=== PATIENT | female | born 1975 | race Caucasian/White ===

== ENCOUNTER 2016-08-01 16:32 | Inpatient (IN) | payer OTHER, SELFPAY ==
[~2016-08-01] VITALS: Ht 152.4 cm; Wt 53.1 kg
[~2016-08-01 16:32] MED LIST: /CIPR75TA OR; /METO5TA PO; ACET65TA OR; AUGM875T27 PO; FLAG500T PO; IBUP600T OR; NO MEDS AT HOME; OMEP40CA2 PO; TAKES NO MEDS; VALI5TAB OR; VENTAER IN; ZANT150T OR
[2016-08-01] MEDS ORDERED: NALOXONE INJ 2 MG/2 ML SYRINGE (J2310) As Ordered ONE (16:39)
[2016-08-01 16:48] LABS: ABG DEVICE NASAL CANN; ABG PARTIAL PRESSURE CO2 13.9 mmHg (35.0-45.0); ABG PARTIAL PRESSURE O2 113.4 mmHg (75.0-100.0); ABG STANDARD HCO3 22.8 MEQ/L (22.0-26.0); ABG TOTAL CO2 17.5 MEQ/L (22.0-29.0); ABG pH (ARTERIAL) 7.706 UNITS (7.350-7.450)
[2016-08-01 17:08] LABS: AMPHETAMINES LEVEL URINE NEGATIVE (NEGATIVE); BENZODIAZEPINES URINE NEGATIVE (NEGATIVE); COCAINE METABOLITE URINE NEGATIVE (NEGATIVE); CONTROL LINE INT CTR LINE PRESENT; METHADONE URINE NEGATIVE (NEGATIVE); OPIATES URINE NEGATIVE (NEGATIVE); TRICYCLIC ANTIDEPRESS URINE NEGATIVE (NEGATIVE)
[2016-08-01] MEDS ORDERED: ACETAMINOPHEN TAB 650MG DOSE (2X325MG) As Ordered ONE ×2 (17:08→21:46)
[2016-08-01 17:11] LABS: ALBUMIN 3.9 GM/DL (3.2-5.2); ALBUMIN/GLOBULIN RATIO 1.05 (1.00-1.93); ALKALINE PHOSPHATASE 63 U/L (45-117); ALT/SGPT 17 U/L (12-78); ANION GAP 11 MEQ/L (8-16); AST/SGOT 19 U/L (15-37); BILIRUBIN,DIRECT 0.1 MG/DL (0.0-0.2); BILIRUBIN,TOTAL 0.5 MG/DL (0.2-1.0); BLOOD UREA NITROGEN 10 MG/DL (7-18); CALCIUM LEVEL 8.4 MG/DL (8.5-10.1); CARBON DIOXIDE LEVEL 22 MEQ/L (21-32); CHLORIDE LEVEL 108 MEQ/L (98-107); CREATININE FOR GFR 0.99 MG/DL (0.55-1.02); GLOMERULAR FILTRATION RATE > 60.0 (>58); GLUCOSE, FASTING 98 MG/DL (70-105); POTASSIUM SERUM 3.3 MEQ/L (3.5-5.1); SODIUM LEVEL 141 MEQ/L (136-145); TOTAL PROTEIN 7.6 GM/DL (6.4-8.2)
[2016-08-01 17:12] LABS: INR 0.87
--- NOTE | 2016-08-01 17:18 | REP ---
Clinical: Chest pain . Comparison: 04/29/2012 . Findings: The mediastinum and cardiac silhouette are stable and within normal limits for portable technique. The lung singh are clear without acute consolidation, effusion, or pneumothorax. Skeletal structures are intact. Impression: Normal portable chest x-ray Signed by Joe Jacome MD 08/01/2016 05:10 P
[2016-08-01 17:21] LABS: BASO % 1.5 % (0.0-1.0); EOS # 0.1 K/mm3 (0.0-0.50); EOS % 2.8 % (0.0-3.0); LARGE UNSTAINED CELL % 1.2 % (0.0-4.0); LYMPH # 0.5 K/mm3 (1.5-4.5); LYMPH % 13.4 % (24.0-44.0); MEAN CORPUSCULAR HEMOGLOBIN 18.4 pg (27.0-33.0); MEAN CORPUSCULAR HGB CONC 27.4 g/dl (32.0-36.5); MEAN CORPUSCULAR VOLUME 67.1 fl (80.0-96.0); MONO # 0.3 K/mm3 (0.0-0.8); MONO % 9.1 % (0.0-5.0); NEUTROPHILS # 2.3 K/mm3 (1.8-7.7); NEUTROPHILS % 72.1 % (36.0-66.0); PLATELET COUNT, AUTOMATED 280 k/mm3 (150-450); RED CELL DISTRIBUTION WIDTH 16.8 % (11.5-14.5); WHITE BLOOD COUNT 3.1 K/mm3 (4.0-10.0)
[2016-08-01 17:23] LABS: ADD MORPHOLOGY? YES; ANISOCYTOSIS 1+; HYPOCHROMASIA 2+
[2016-08-01 17:24] LABS: MICROCYTOSIS 2+
--- NOTE | 2016-08-01 17:46 | REP ---
Clinical: Acute headache . Comparison: 10/24/2006 . Findings: The ventricles, sulci, and cisterns are normal in position and appearance. Horton-white differentiation is maintained. No acute intracranial hemorrhage, mass/mass effect, pathology or trauma/injury. No evidence for acute infarction. No extra-axial fluid collection. Calvarium is intact. Paranasal sinuses and mastoid air cells are clear. Impression: Normal noncontrast head CT. No evidence for acute intracranial pathology or trauma/injury. Signed by Joe Jacome MD 08/01/2016 05:37 P
[2016-08-01] MEDS ORDERED: BICILLIN-CR 1,200,000 UNITS/2ML SYRINGE (J0558-12) As Ordered ONE (18:32)
[2016-08-01] MEDS ORDERED: ISOVUE-370 76% 100ML VIAL (Q9967) As Ordered ONE (18:34)
--- NOTE | 2016-08-01 19:05 | REP ---
Clinical: Acute chest pain. Technique: Axial contrast enhanced images from the thoracic inlet to the upper abdomen using 100 ml Isovue 370 intravenous contrast material with coronal and sagittal re-formations. Findings: Satisfactory enhancement of the pulmonary vasculature is achieved and no filling defects are identified to suggest pulmonary embolus. Thoracic aorta is normal caliber without aneurysm or dissection. Heart and pericardium are normal. Lung singh demonstrate minimal right basilar atelectasis. Small partially calcified subpleural nodule in the apex of the left lower lobe (image 28) and in the periphery of the left lower lobe (image 46 - 47) are chronic and faintly visible on chest CT dated 2011. No acute pulmonary parenchymal consolidation, significant nodule or mass lesion appreciated. No pleural effusion/reaction. No pneumothorax. No adenopathy. Impression: 1. No evidence for pulmonary embolus. 2. Minimal right basilar atelectasis. 3. Two small partially calcified nodules in the left lower lobe are faintly visible on chest CT dated 2011 and represent chronic change. Signed by Joe Jacome MD 08/01/2016 06:57 P
[2016-08-01] MEDS ORDERED: GI COCKTAIL 50ML BTL(HYOSCYAMINE/MAALOX/LIDOCAINE VISCOUS)(1:3:1) As Ordered ONE (19:17)
[2016-08-01] MEDS ORDERED: KETOROLAC 30 MG/ML VIAL (J1885) As Ordered ONE (19:17)
[2016-08-01 19:26] LABS: ABG DEVICE NASAL CANN; ABG HCO3 17.2 MEQ/L (22.0-26.0); ABG PARTIAL PRESSURE CO2 18.7 mmHg (35.0-45.0); ABG PARTIAL PRESSURE O2 137.4 mmHg (75.0-100.0); ABG STANDARD HCO3 21.1 MEQ/L (22.0-26.0); ABG TOTAL CO2 17.8 MEQ/L (22.0-29.0); ABG pH (ARTERIAL) 7.582 UNITS (7.350-7.450)
[2016-08-01] MEDS ORDERED: IPRATROPIUM 0.5MG/ALBUTEROL 2.5MG INH SOL UD 3ML (DUONEB)(J7620) NEB PRN (19:45)
[2016-08-01] MEDS ORDERED: ACETAMINOPHEN TAB 650MG DOSE (2X325MG) PO PRN (19:45)
[2016-08-01] MEDS ORDERED: MAGIC MOUTHWASH SUSPENSION BTL SSP PRN (19:45)
--- NOTE | 2016-08-01 23:06 | EDDOCDS ---
Nurse's Notes [facility] Name: Vicky Gonzalez Age: 41 yrs Sex: Female : 1975 Arrival Date: 08/01/2016 Time: 16:32 Bed Admit Hold Private MD: NO PRIMARY PHYSICIAN, . Diagnosis: Acute respiratory failure with hypoxia;Streptococcal pharyngitis Presentation: 08/01 17:00 Presenting complaint: EMS states: Patient was found down at home with a respiratory ja5 rate of 8bpm, spo2 low 90s and was placed on a non-rebreather mask 15L O2, lung sounds were clear. Blood sugar 97, BP 93/67 in field. Patient was placed on stretcher and she became unresponsive and stopped breathing. EMS used BVM on patient and O2 sats dropped to 70% so they attempted to place an OPA, gag reflex present, etomodate was found to have infiltrated in LAC that was started. O2 sat increased to 90% prior to arrival to hospital. Method of arrival: Ambulance: direct to room. Care prior to arrival: assisted ventilation, Saline lock initiated. Glucose check. 97 Oxygen administered by EMS. Compressions began :NA: no chest compressions. 17:00 Acuity: SHIRA Level 1 ja5 20:09 Acuity: SHIRA Level 3 ko2 20:09 Adult Sepsis Screening: The patient does not have new or worsening altered mentation. ko2 Patient's respiratory rate is less than 22. Systolic blood pressure is greater than 100. Patient has a qSOFA score of 0- Negative Sepsis Screen. Suicide/Homicide risk assessment- the patient denies having any suicidal and/or homicidal ideations and does not present with any other emotional, behavioral or mental health complaints. Status: Patient is not a medical services assistant or dependent. Transition of care: patient was not received from another setting of care. Triage Assessment: 17:38 Pain: Location: head and chest Pain currently is 10 out of 10 on a pain scale. HIV ja5 screening NA for this visit Offered previously. Neurological: Level of Consciousness is awake, alert, Oriented to person, place, time. Cardiovascular: Capillary refill < 3 seconds Heart tones S1 S2 present. Respiratory: Airway is patent Respiratory effort is even, gasping, shallow, Breath sounds are clear bilaterally. Derm: Skin is pink, warm & dry. Musculoskeletal: Circulation, motion, and sensation intact. BAG ADJUSTER: 16:40 LMP 07/18/2016 ja5 Historical: - Allergies: SULFA (SULFONAMIDES); - Home Meds: 1. none - PMHx: none; - PSHx: Tubal ligation; ; - Social history: Smoking status: Patient states was never smoker of tobacco. No barriers to communication noted, The patient speaks fluent Kuwaiti. - Family history: Not pertinent. - : The pt / caregiver states he / she is not on anticoagulants. Home medication list is obtained from the patient. - Exposure Risk Screening:: None identified. Screenin:00 Abuse/DV Screen: Unable to Assess. Nutritional screening: Unable to Assess. ja5 17:44 Screening information is obtained from the patient. Fall risk: No risks identified. ja5 Assistance ADL's: requires no assistance with activities of daily living. Abuse/DV Screen: The patient / caregiver reports he/she is: not in a situation that causes fear, pain or injury. Advance Directives: Currently, there is a health care proxy, Zo Parks, mother. There is no active DNR order. There is no living will. There is no Power of [employer]. home support is adequate. Assessment: 17:00 CPR assessment: no CPR was needed. Cardiac rhythm is Sinus Rhythm. ja5 17:17 General: Appears distressed, Patient arrived to ED via EMS on stretcher, BVP in place ja5 ventilating patient who is unresponsive at this time. She was transferred to our stretcher and placed on monitors. 100% SPO2 on 15L O2 BVM, HR 103 sinus tach, patient is responding to noxious stimuli, rectal temperature 102.3 degrees F. Two large bore IVs were placed and patient began talking. BVM was removed and O2 sats remained 100% on RA with RR of 36. . 17:44 General: see triage assessment. ja5 18:57 General: Patient just returned from CT scan, laying with HOB 30 degrees in stretcher ja5 with RR 24, O2 sat 100% on 2L O2 NC. HR 121 SR on speech language pathologist. Patient states that she is still having pain while breathing. Family is at bedside at this time.. 19:20 General: Appears distressed, Behavior is anxious. Pain: Location: neck and chest Pain ko2 currently is 9 out of 10 on a pain scale. Neurological: Level of Consciousness is awake, alert. Respiratory: Airway is patent. Derm: Skin is pale. 21:02 General: Appears in no apparent distress, Behavior is appropriate for age, cooperative. ko2 Neurological: Level of Consciousness is awake, alert. Respiratory: Airway is patent Respiratory effort is even, unlabored. Derm: Skin is normal. 22:10 General: Appears in no apparent distress, Behavior is appropriate for age, cooperative. ko2 Neurological: Level of Consciousness is awake, alert. Respiratory: Airway is patent Respiratory effort is even, unlabored. Derm: Skin is normal. Vital Signs: 16:36 BP 138 / 68 (auto/); ja5 16:36 Pulse 97 MON; Pulse Ox 100% ; ja5 16:40 BP 123 / 58; Pulse 89; Resp 36; Temp 102.3; Pulse Ox 100% on R/A; Pain 10/10; ja5 16:43 BP 123 / 58 (auto/); ja5 16:43 Pulse 114 MON; Pulse Ox 100% ; ja5 16:45 BP 117 / 55 (auto/); ja5 16:46 Pulse 108 MON; Pulse Ox 100% ; ja5 17:00 Temp 102.3(R); ld5 17:00 BP 108 / 57 (auto/); ja5 17:00 Pulse 100 MON; Pulse Ox 100% ; ja5 17:15 BP 118 / 55 (auto/); ja5 17:15 Pulse 100 MON; Pulse Ox 100% ; ja5 17:21 Pulse 98 MON; Pulse Ox 100% ; ja5 17:30 BP 115 / 61 (auto/); ja5 17:44 Pulse 97 MON; Pulse Ox 100% ; ja5 17:45 BP 109 / 58 (auto/); ja5 18:00 BP 112 / 69 (auto/); ja5 18:00 Pulse 100 MON; Pulse Ox 100% ; ja5 18:15 BP 111 / 70 (auto/); ja5 18:15 Pulse 103 MON; Pulse Ox 100% ; ja5 18:30 BP 108 / 59 (auto/); ja5 18:30 Pulse 105 MON; Pulse Ox 100% ; ja5 18:34 Pulse 102 MON; Pulse Ox 100% ; ja5 18:45 BP 108 / 62 (auto/); ja5 19:00 BP 107 / 64 (auto/); ko2 19:00 Pulse 108 MON; Pulse Ox 100% ; ko2 19:15 BP 102 / 58 (auto/); ko2 19:15 Pulse 95 MON; Pulse Ox 100% ; ko2 19:30 BP 103 / 58 (auto/); ko2 19:30 Pulse 94 MON; Pulse Ox 100% ; ko2 19:45 BP 106 / 60 (auto/); ko2 19:45 Pulse 98 MON; Pulse Ox 99% ; ko2 21:43 BP 103 / 62; Pulse 92; Resp 16; Temp 102.1; Pulse Ox 99% ; Pain 8/10; ko2 22:50 Temp 101(TE); ko2 Vitals: 17:38 Log In Time: August 01, 2016 at 16:30. ja5 17:40 Strep Screen is obtained and tested: Positive. [facility] ED Course: 16:32 Patient visited by Dinora Hernandez PCA. ar3 16:32 Patient moved to Waiting ar3 16:33 Muriel Ugarte,RN is Primary Nurse. ar3 16:33 NO PRIMARY PHYSICIAN, . is Private Physician. ar3 16:33 Patient moved to 2 ar3 16:39 Paola Langley MD is Attending Physician. fg 16:39 Patient visited by Paola Langley MD. fg 16:40 Inserted saline lock: 16 gauge in left antecubital area. Inserted saline lock: 16 gauge ja5 in right antecubital area. 16:50 Notified attending ED physician of Critical lab value. Dr Langley aware of abnormal ABG [facility] results. 16:51 Urine Toxicology Sent. ld5 16:52 Patient visited by Tari Ballard. nb2 16:52 Urinalysis Sent. ld5 16:52 Urine Culture Sent. ld5 16:52 EKG done. (by ED staff). Reviewed by Paola Langley MD. nb2 16:52 Lr cath inserted 16 Fr. Balloon inflated. To gravity drainage. Urine specimen ld5 collected. returned clear yellow urine. Patient tolerated well. 16:54 -Arterial Blood Gas Sent. cs15 17:04 SALICYLATE LEVEL Sent. bcj 17:05 ACETAMINOPHEN LEVEL Sent. bcj 17:21 Patient visited by Jose Manuel Plaza, CONNOR. bcj 17:31 Chest, 1 View Returned. EDMS 17:40 Patient visited by Jose Manuel Plaza, CONNOR. bcj 18:23 CT Head Without Contrast Returned. EDMS 19:04 Kiki Durbin,RN is Primary Nurse. ko2 19:04 Patient visited by Kiki Durbin RN. ko2 19:16 CT Chest Angio R/O PE Returned. EDMS 19:23 -Arterial Blood Gas Sent. jh6 19:25 Attending Physician role handed off by Paola Langley MD mm11 19:25 Abdirahman Toscano DO is Attending Physician. mm11 19:28 Primary Nurse role handed off by Muriel Ugarte,CONNOR juan diego 20:04 Patient visited by Luz Watson PCA. juan diego 20:09 The patient / caregiver is instructed regarding the plan of care and ED course. ko2 20:09 No procedures done that require assistance. ko2 20:14 [facility] Payment Agreement was scanned into at[employer] and attached to record. gjb 20:34 Rafat Smart DO is Hospitalizing Provider. mm11 20:43 Patient moved to Admit Hold ml3 21:24 Lr cath removed intact, balloon deflated. ko2 22:56 Patient visited by Kiki Durbin RN. ko2 Administered Medications: 16:42 Drug: naloxone 1 mg [naloxone 1 mg/mL injection syringe (1 mL)] Route: IVP; Site: left bcj antecubital; 16:50 Drug: naloxone 1 mg [naloxone 1 mg/mL injection syringe (1 mL)] Route: IVP; Site: left bcj antecubital; 17:13 Drug: NS 0.9% 1000 ml [sodium chloride 0.9 % intravenous solution] Route: IV; Rate: bcj bolus; Site: right antecubital; 17:14 Drug: Acetaminophen 650 mg [acetaminophen 325 mg tablet (2 tabs)] Route: PO; bcj 18:55 Drug: Penicillin G Proc & Benzathine 1.2 mmu [penicillin G benzathine and procaine ja5 1,200,000 unit/2 mL IM syringe (1.2 mmu)] Route: IM; Site: right gluteus; 19:27 Drug: ketorolac 30 mg [ketorolac 30 mg/mL (1 mL) injection solution (1 mL)] Route: IVP; ko2 Site: left hand; 19:27 Drug: GI Cocktail - (Alum-Mag Hydroxide-Simeth Suspension 225 mg-200 mg-25 mg/5 mL 30 ko2 ml, Lidocaine Liquid 2 % 10 ml, Hyoscyamine Liquid 10 ml) Route: PO; 21:45 Drug: Acetaminophen 650 mg [acetaminophen 325 mg tablet (2 tabs)] Route: PO; ko2 21:50 CANCELLED (Duplicate Order): Acetaminophen Tablet 650 mg PO once ko2 Output: 21:30 Urine: 400.00ml (Lr); Total: 400.00ml. ko2 RT: 16:54 ABG's drawn from right radial artery allens test done and positive pressure held for 5 cs15 minutes no bleeding noted pressure bandage applied specimen sent pt. tolerated well. Oxygen is room air. Respiratory: Respiratory effort is labored, gasping, shallow, Respiratory pattern is Jaspreet alonzo tachypnea. 19:23 ABG's drawn from right radial artery pressure held for 5 minutes no bleeding noted jh6 pressure bandage applied specimen sent pt. tolerated well. Order Results: Lab Order: -Arterial Blood Gas; SPEC'M 08/01/16 16:43 Test: ABG pH (ARTERIAL); Value: 7.706; Range: 7.350-7.450; Abnormal: Above upper panic limits; Units: UNITS; Status: F Test: ABG PARTIAL PRESSURE CO2; Value: 13.9; Range: 35.0-45.0; Abnormal: Critical Low; Units: mmHg; Status: F Test: ABG PARTIAL PRESSURE O2; Value: 113.4; Range: 75.0-100.0; Abnormal: Above high normal; Units: mmHg; Status: F Test: ABG TOTAL CO2; Value: 17.5; Range: 22.0-29.0; Abnormal: Below low normal; Units: MEQ/L; Status: F Test: ABG HCO3; Value: 17.0; Range: 22.0-26.0; Abnormal: Below low normal; Units: MEQ/L; Status: F Test: ABG BASE EXCESS; Value: -2.0; Range: -2.0-2.0; Status: F Test: ABG STANDARD HCO3; Value: 22.8; Range: 22.0-26.0; Units: MEQ/L; Status: F Test: ABG O2 SATURATION; Value: 99.1; Range: 95.0-99.0; Abnormal: Above high normal; Units: %; Status: F Test: ABG DEVICE; Value: NASAL VERÓNICA; Status: F Lab Order: CBC with Diff; SPEC'M 08/01/16 16:38 Test: WHITE BLOOD COUNT; Value: 3.1; Range: 4.0-10.0; Abnormal: Below low normal; Units: K/mm3; Status: F Test: RED BLOOD COUNT; Value: 3.86; Range: 4.00-5.40; Abnormal: Below low normal; Units: M/mm3; Status: F Test: HEMOGLOBIN; Value: 7.1; Range: 12.0-16.0; Abnormal: Below low normal; Units: g/dl; Status: F Test: HEMATOCRIT; Value: 25.9; Range: 36.0-47.0; Abnormal: Below low normal; Units: %; Status: F Test: MEAN CORPUSCULAR VOLUME; Value: 67.1; Range: 80.0-96.0; Abnormal: Below low normal; Units: fl; Status: F Test: MEAN CORPUSCULAR HEMOGLOBIN; Value: 18.4; Range: 27.0-33.0; Abnormal: Below low normal; Units: pg; Status: F Test: MEAN CORPUSCULAR HGB CONC; Value: 27.4; Range: 32.0-36.5; Abnormal: Below low normal; Units: g/dl; Status: F Test: RED CELL DISTRIBUTION WIDTH; Value: 16.8; Range: 11.5-14.5; Abnormal: Above high normal; Units: %; Status: F Test: PLATELET COUNT, AUTOMATED; Value: 280; Range: 150-450; Units: k/mm3; Status: F Test: NEUTROPHILS %; Value: 72.1; Range: 36.0-66.0; Abnormal: Above high normal; Units: %; Status: F Test: LYMPH %; Value: 13.4; Range: 24.0-44.0; Abnormal: Below low normal; Units: %; Status: F Test: MONO %; Value: 9.1; Range: 0.0-5.0; Abnormal: Above high normal; Units: %; Status: F Test: EOS %; Value: 2.8; Range: 0.0-3.0; Units: %; Status: F Test: BASO %; Value: 1.5; Range: 0.0-1.0; Abnormal: Above high normal; Units: %; Status: F Test: LARGE UNSTAINED CELL %; Value: 1.2; Range: 0.0-4.0; Units: %; Status: F Test: NEUTROPHILS #; Value: 2.3; Range: 1.8-7.7; Units: K/mm3; Status: F Test: LYMPH #; Value: 0.5; Range: 1.5-4.5; Abnormal: Below low normal; Units: K/mm3; Status: F Test: MONO #; Value: 0.3; Range: 0.0-0.8; Units: K/mm3; Status: F Test: EOS #; Value: 0.1; Range: 0.0-0.50; Units: K/mm3; Status: F Test: BASO #; Value: 0.0; Range: 0.0-0.2; Units: K/mm3; Status: F Test: LARGE UNSTAINED CELL #; Value: 0.0; Range: 0.0-0.4; Units: K/mm3; Status: F Lab Order: Lactic Acid (Horton tube on ice); [facility] 08/01/16 16:38 Test: LACTIC ACID SEPSIS PROTOCOL; Value: 1.9; Range: 0.4-2.0; Units: MMOL/L; Status: F Lab Order: Liver Profile; [facility] 08/01/16 16:38 Test: AST/SGOT; Value: 19; Range: 15-37; Units: U/L; Status: F Test: ALT/SGPT; Value: 17; Range: 12-78; Units: U/L; Status: F Test: ALKALINE PHOSPHATASE; Value: 63; Range: 45-117; Units: U/L; Status: F Test: BILIRUBIN,TOTAL; Value: 0.5; Range: 0.2-1.0; Units: MG/DL; Status: F Test: BILIRUBIN,DIRECT; Value: 0.1; Range: 0.0-0.2; Units: MG/DL; Status: F Test: TOTAL PROTEIN; Value: 7.6; Range: 6.4-8.2; Units: GM/DL; Status: F Test: ALBUMIN; Value: 3.9; Range: 3.2-5.2; Units: GM/DL; Status: F Test: ALBUMIN/GLOBULIN RATIO; Value: 1.05; Range: 1.00-1.93; Status: F Lab Order: MED Profile; SPEC'M 08/01/16 16:38 Test: GLUCOSE, FASTING; Value: 98; Range: 70-105; Units: MG/DL; Status: F Test: BLOOD UREA NITROGEN; Value: 10; Range: 7-18; Units: MG/DL; Status: F Test: CREATININE FOR GFR; Value: 0.99; Range: 0.55-1.02; Units: MG/DL; Status: F Test: GLOMERULAR FILTRATION RATE; Value: > 60.0; Range: >58; Status: F Test: SODIUM LEVEL; Value: 141; Range: 136-145; Units: MEQ/L; Status: F Test: POTASSIUM SERUM; Value: 3.3; Range: 3.5-5.1; Abnormal: Below low normal; Units: MEQ/L; Status: F Test: CHLORIDE LEVEL; Value: 108; Range: 98-107; Abnormal: Above high normal; Units: MEQ/L; Status: F Test: CARBON DIOXIDE LEVEL; Value: 22; Range: 21-32; Units: MEQ/L; Status: F Test: ANION GAP; Value: 11; Range: 8-16; Units: MEQ/L; Status: F Test: CALCIUM LEVEL; Value: 8.4; Range: 8.5-10.1; Abnormal: Below low normal; Units: MG/DL; Status: F Test Note: ; Units are mL/min/1.73 m2 Chronic Kidney Disease Staging per NKF: Stage I & II GFR >=60 Normal to Mildly Decreased Stage III GFR 30-59 Moderately Decreased Stage IV GFR 15-29 Severely Decreased Stage V GFR <15 Very Little GFR Left ESRD GFR <15 on POULTRY TRIMMER Lab Order: PT/INR; SPEC'M 08/01/16 16:38 Test: PROTHROMBIN TIME; Value: 11.9; Range: 12.3-14.5; Abnormal: Below low normal; Units: SECONDS; Status: F Test: INR; Value: 0.87; Status: F Test Note: ; THERAPUTIC HUMAN INR VALUES INDICATIONS NORMAL RANGES PROPHYLAXIS/TREATMENT OF: VENOUS THROMBOSIS 2.0-3.0 PULMONARY EMBOLISM 2.0-3.0 PREVENTION OF SYSTEMIC EMBOLISM FROM: TISSUE HEART VALVES 2.0-3.0 ACUTE MYOCARDIAL INFARCTION 2.0-3.0 VALVULAR HEART DISEASE 2.0-3.0 ATRIAL FIBRILLATION 2.0-3.0 MECHANICAL VALVES(HIGH RISK) 2.5-3.5 RECURRENT MYOCARDIAL INFARCTION 2.5-3.5 Lab Order: PTT; [facility] 08/01/16 16:38 Test: PARTIAL THROMBOPLASTIN TIME; Value: 31.9; Range: 26.6-37.1; Units: SECONDS; Status: F Lab Order: Type & Screen; [facility] 08/01/16 16:38 Test: BLOOD TYPE; Value: A POS; Status: F Test: AB SCREEN (INDIRECT KARLA)VIS; Value: NEGATIVE; Status: F Lab Order: Urinalysis; [facility] 08/01/16 16:49 Test: APPEARANCE, URINE; Value: CLEAR; Range: CLEAR; Status: F Test: COLOR, URINE; Value: STRAW; Range: YELLOW; Status: F Test: PH,URINE; Value: 7.0; Range: 5.0-9.0; Units: UNITS; Status: F Test: SPECIFIC GRAVITY URINE AUTO; Value: 1.012; Range: 1.002-1.035; Status: F Test: PROTEIN, URINE AUTO; Value: NEGATIVE; Range: NEGATIVE; Units: mg/dL; Status: F Test: GLUCOSE, URINE (UA) AUTO; Value: NEGATIVE; Range: NEGATIVE; Units: mg/dL; Status: F Test: KETONE, URINE AUTO; Value: 1+; Range: NEGATIVE; Abnormal: Above high normal; Units: mg/dL; Status: F Test: UROBILINOGEN, URINE AUTO; Value: 0.2; Range: 0.0-2.0; Units: mg/dL; Status: F Test: BILIRUBIN, URINE AUTO; Value: NEGATIVE; Range: NEGATIVE; Status: F Test: NITRITE, URINE AUTO; Value: NEGATIVE; Range: NEGATIVE; Status: F Test: LEUKOCYTE ESTERASE, URINE AUTO; Value: NEGATIVE; Range: NEGATIVE; Status: F Test: BLOOD, URINE BLOOD; Value: NEGATIVE; Range: NEGATIVE; Status: F Test: WBC, URINE AUTO; Value: 1; Range: 0-3; Units: /HPF; Status: F Test: RBC, URINE AUTO; Value: 0; Range: 0-3; Units: /HPF; Status: F Test: BACTERIA, URINE AUTO; Value: NEGATIVE; Range: NEGATIVE; Status: F Test: SQUAMOUS EPITHELIAL CELL UR AU; Value: 0; Range: 0-6; Units: /HPF; Status: F Test: HYALINE CAST, URINE AUTO; Value: 0; Range: 0-1; Units: /LPF; Status: F Lab Order: Urine Toxicology; SPEC'M 08/01/16 16:49 Test: AMPHETAMINES LEVEL URINE; Value: NEGATIVE; Range: NEGATIVE; Status: F Test: BARBITURATES URINE; Value: NEGATIVE; Range: NEGATIVE; Status: F Test: BENZODIAZEPINES URINE; Value: NEGATIVE; Range: NEGATIVE; Status: F Test: CANNABINOIDS URINE; Value: NEGATIVE; Range: NEGATIVE; Status: F Test: COCAINE METABOLITE URINE; Value: NEGATIVE; Range: NEGATIVE; Status: F Test: METHADONE URINE; Value: NEGATIVE; Range: NEGATIVE; Status: F Test: OPIATES URINE; Value: NEGATIVE; Range: NEGATIVE; Status: F Test: TRICYCLIC ANTIDEPRESS URINE; Value: NEGATIVE; Range: NEGATIVE; Status: F Test Note: ; ALL PRESUMPTIVE POSITIVE FINDINGS ARE UNCONFIRMED NORMAL VALUES THRESHOLD IN NG/ML AMPHETAMINES 1000 METHAMPHETAMINES 1000 BARBITURATES 300 BENZODIAZEPINES 300 CANNABINOIDS (THC) 50 COCAINE METABOLITE 300 METHADONE 300 OPIATES 300 PHENCYCLIDINE 25 TRICYCLIC ANTIDEPRESSANTS 1000 RESULTS ARE FOR MEDICAL PURPOSES ONLY. ALL URINE SPECIMENS WILL BE SAVED FOR 3 DAYS. IF CONFIRMATION OF A PRESUMPTIVE POSTIVE SCREEN RESULT IS DESIRED, CALL CHEMISTRY ([phone]) AND REQUEST URINE TO BE SENT TO REFERENCE LAB. FOR A LIST OF CLOSELY RELATED COMPOUNDS PLEASE CALL THE LAB. Lab Order: ACETAMINOPHEN LEVEL; SPEC'M 08/01/16 16:38 Test: ACETAMINOPHEN LEVEL; Value: < 2.0; Range: 10.0-30.0; Abnormal: Below low normal; Units: UG/ML; Status: F Lab Order: SALICYLATE LEVEL; SPEC'M 08/01/16 16:38 Test: SALICYLATE LEVEL; Value: < 1.7; Range: 5.0-30.0; Abnormal: Below low normal; Units: MG/DL; Status: F Lab Order: CARDIAC MARKER PANEL; SPEC'M 08/01/16 16:38 Test: CPK CREATINE PHOSPHOKINASE; Value: 149; Range: 26-192; Units: U/L; Status: F Test: CK-MB VALUE MASS; Value: 1.0; Range: 0.0-3.6; Units: NG/ML; Status: F Test: MB/CK RELATIVE INDEX; Value: 0.67; Range: < OR =4; Status: F Test: TROPONIN I; Value: < 0.02; Range: < 0.10; Units: NG/ML; Status: F Test Note: ; DIAGNOSIS CRITERIA MMB ng/ml Relative Index (RI) NON-AMI < or = 5 N/A [place] > 5 < or = 4 AMI > 5 > 4 Lab Order: BRAIN NATIURETIC PEPTIDE; SPEC08/01/16 16:38 Test: BRAIN NATRIURETIC PEPTIDE; Value: 101; Range: <100; Abnormal: Above high normal; Units: PG/ML; Status: F Lab Order: RBC MORPH PROF NO CHARGE; SPEC08/01/16 16:38 Test: HYPOCHROMASIA; Value: 2+; Status: F Test: ANISOCYTOSIS; Value: 1+; Status: F Test: MICROCYTOSIS; Value: 2+; Status: F Test: PLATELET ESTIMATE; Value: NORMAL; Range: NORMAL; Status: F Lab Order: -Arterial Blood Gas; [facility]08/01[facility]16 19:15 Test: ABG pH (ARTERIAL); Value: 7.582; Range: 7.350-7.450; Abnormal: Above high normal; Units: UNITS; Status: F Test: ABG PARTIAL PRESSURE CO2; Value: 18.7; Range: 35.0-45.0; Abnormal: Critical Low; Units: mmHg; Status: F Test: ABG PARTIAL PRESSURE O2; Value: 137.4; Range: 75.0-100.0; Abnormal: Above high normal; Units: mmHg; Status: F Test: ABG TOTAL CO2; Value: 17.8; Range: 22.0-29.0; Abnormal: Below low normal; Units: MEQ/L; Status: F Test: ABG HCO3; Value: 17.2; Range: 22.0-26.0; Abnormal: Below low normal; Units: MEQ/L; Status: F Test: ABG BASE EXCESS; Value: -4.0; Range: -2.0-2.0; Abnormal: Below low normal; Status: F Test: ABG STANDARD HCO3; Value: 21.1; Range: 22.0-26.0; Abnormal: Below low normal; Units: MEQ/L; Status: F Test: ABG O2 SATURATION; Value: 99.1; Range: 95.0-99.0; Abnormal: Above high normal; Units: %; Status: F Test: ABG DEVICE; Value: NASAL VERÓNICA; Status: F Radiology Order: Chest, 1 View Test: Chest, 1 View REASON FOR EXAMINATION: Chest Pain; Clinical: Chest pain .; ; Comparison: 04/29/2012 .; ; Findings:; The mediastinum and cardiac silhouette are stable and within normal limits for; portable technique. The lung singh are clear without acute consolidation,; effusion, or pneumothorax. Skeletal structures are intact.; ; Impression:; Normal portable chest x-ray; ; ; Signed by; Joe Jacome MD 08/01/2016 05:10 P; Radiology Order: CT Head Without Contrast Test: CT Head Without Contrast REASON FOR EXAMINATION: headache; Clinical: Acute headache .; ; Comparison: 10/24/2006 .; ; Findings:; The ventricles, sulci, and cisterns are normal in position and appearance.; Horton-white differentiation is maintained. No acute intracranial hemorrhage,; mass/mass effect, pathology or trauma/injury. No evidence for acute infarction.; No extra-axial fluid collection. Calvarium is intact. Paranasal sinuses and; mastoid air cells are clear.; ; Impression:; Normal noncontrast head CT.; No evidence for acute intracranial pathology or trauma/injury.; ; ; Signed by; Joe Jacome MD 08/01/2016 05:37 P; Radiology Order: CT Chest Angio R/O PE Test: CT Chest Angio R/O PE REASON FOR EXAMINATION: Chest Pain; Clinical: Acute chest pain.; ; Technique: Axial contrast enhanced images from the thoracic inlet to the upper; abdomen using 100 ml Isovue 370 intravenous contrast material with coronal and; sagittal re-formations.; ; Findings: Satisfactory enhancement of the pulmonary vasculature is achieved and; no filling defects are identified to suggest pulmonary embolus. Thoracic aorta; is normal caliber without aneurysm or dissection. Heart and pericardium are; normal. Lung singh demonstrate minimal right basilar atelectasis. Small; partially calcified subpleural nodule in the apex of the left lower lobe (image; 28) and in the periphery of the left lower lobe (image 46 - 47) are chronic and; faintly visible on chest CT dated 2011. No acute pulmonary parenchymal; consolidation, significant nodule or mass lesion appreciated. No pleural; effusion/reaction. No pneumothorax. No adenopathy.; ; Impression:; 1. No evidence for pulmonary embolus.; 2. Minimal right basilar atelectasis.; 3. Two small partially calcified nodules in the left lower lobe are faintly; visible on chest CT dated 2011 and represent chronic change.; ; ; Signed by; Joe Jacome MD 08/01/2016 06:57 P; Outcome: 17:00 Code Team Members : Paola Langley MD. Rhythm strips are placed in the patient chart. ja5 Outcome Return of spontaneous breathing was achieved at 1635. 20:35 Decision to Hospitalize by Provider. mm11 22:56 Discharge Assessment: Patient awake, alert and oriented x 3. No cognitive and/or ko2 functional deficits noted. Patient verbalized understanding of disposition instructions. patient administered narcotics - no. The following High Risk Discharge criteria are identified: None. Admitted to Floor accompanied by tech, via wheelchair, with chart. Condition: stable. Property :Personal belongings accompany Pt. 22:56 CT Study completed. ko2 23:05 Patient left the ED. rinku Signatures: Dispatcher [employer] EDMS Cherrie Patel, RN RN Jose Manuel Alvarez, RN RN Raiza Todd, RN RN Grace Spivey, Pnp Unit ml3 Abdirahman Toscano DO DO mm11 Dinora Hernandez, TRANSCRIPTIONIST TRANSCRIPTIONIST ar3 Betzaida Roman,RN RN ld5 Luz Watson, TRANSCRIPTIONIST TRANSCRIPTIONIST Hayden Shah jh6 Kiki Durbin,RN RN ko2 Paola Langley MD MD fg Shelton, Caleb,RT RT Jenny Turner Nicole nb2 Anderson, Jessica,RN RN [email or web address] Corrections: (The following items were deleted from the chart) 17:19 17:16 CARDIAC MARKER PANEL+LAB sent. [facility] EDMS 17:19 17:16 TROPONIN+LAB sent. [facility] EDMS 17:19 17:16 B-Type NATIURETIC PEPTIDE+LAB sent. [facility] EDMS 17:27 17:00 Acuity: SHIRA Level 2 [facility] ja 17:59 16:30 Inserted saline lock: 16 gauge in left antecubital area [place] [id number] 17:59 16:30 Inserted saline lock: 16 gauge in right antecubital area [facility] ja 21:50 21:45 Acetaminophen Tablet 650 mg PO ko2 ko2 MTDD
--- NOTE | 2016-08-01 23:06 | EDDOCDS ---
Physician Documentation [facility] Name: Vicky Gonzalez Age: 41 yrs Sex: Female : 1975 Arrival Date: 08/01/2016 Time: 16:32 Bed Admit Hold Private MD: NO PRIMARY PHYSICIAN, . Disposition: 08/01/16 20:35 Hospitalization ordered by Rafat Smart for Inpatient Admission. Preliminary diagnosis are Acute respiratory failure with hypoxia, Streptococcal pharyngitis. - Bed requested for M PED. - Status is Inpatient Admission. rinku - Condition is Stable. - Problem is an acute exacerbation. - Symptoms have improved. Historical: - Allergies: SULFA (SULFONAMIDES); - Home Meds: 1. none - PMHx: none; - PSHx: Tubal ligation; ; - Social history: Smoking status: Patient states was never smoker of tobacco. No barriers to communication noted, The patient speaks fluent Croatian. - Family history: Not pertinent. - : The pt / caregiver states he / she is not on anticoagulants. Home medication list is obtained from the patient. - Exposure Risk Screening:: None identified. 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 LMP 07/18/2016 ja5 Vital Signs: 16:36 BP 138 / 68 (auto/); ja5 16:36 Pulse 97 MON; Pulse Ox 100% ; ja5 16:40 BP 123 / 58; Pulse 89; Resp 36; Temp 102.3; Pulse Ox 100% on R/A; Pain 10/10; ja5 16:43 BP 123 / 58 (auto/); ja5 16:43 Pulse 114 MON; Pulse Ox 100% ; ja5 16:45 BP 117 / 55 (auto/); ja5 16:46 Pulse 108 MON; Pulse Ox 100% ; ja5 17:00 Temp 102.3(R); ld5 17:00 BP 108 / 57 (auto/); ja5 17:00 Pulse 100 MON; Pulse Ox 100% ; ja5 17:15 BP 118 / 55 (auto/); ja5 17:15 Pulse 100 MON; Pulse Ox 100% ; ja5 17:21 Pulse 98 MON; Pulse Ox 100% ; ja5 17:30 BP 115 / 61 (auto/); ja5 17:44 Pulse 97 MON; Pulse Ox 100% ; ja5 17:45 BP 109 / 58 (auto/); ja5 18:00 BP 112 / 69 (auto/); ja5 18:00 Pulse 100 MON; Pulse Ox 100% ; ja5 18:15 BP 111 / 70 (auto/); ja5 18:15 Pulse 103 MON; Pulse Ox 100% ; ja5 18:30 BP 108 / 59 (auto/); ja5 18:30 Pulse 105 MON; Pulse Ox 100% ; ja5 18:34 Pulse 102 MON; Pulse Ox 100% ; ja5 18:45 BP 108 / 62 (auto/); ja5 19:00 BP 107 / 64 (auto/); ko2 19:00 Pulse 108 MON; Pulse Ox 100% ; ko2 19:15 BP 102 / 58 (auto/); ko2 19:15 Pulse 95 MON; Pulse Ox 100% ; ko2 19:30 BP 103 / 58 (auto/); ko2 19:30 Pulse 94 MON; Pulse Ox 100% ; ko2 19:45 BP 106 / 60 (auto/); ko2 19:45 Pulse 98 MON; Pulse Ox 99% ; ko2 21:43 BP 103 / 62; Pulse 92; Resp 16; Temp 102.1; Pulse Ox 99% ; Pain 8/10; ko2 22:50 Temp 101(TE); ko2 MDM: 16:35 Call Respiratory ordered. le 16:36 Call Respiratory complete. ar3 16:36 -Arterial Blood Gas Ordered. EDMS 16:39 ECG WITH READING ER PHYS+CARDIAG ordered. EDMS 16:40 naloxone 1 mg IVP once ordered. fg 16:40 Acetaminophen Tablet 650 mg PO once ordered. fg 16:40 -Blood Culture (Adults Only), peripheral from different site, or from device/port/PICC fg etc. if present ordered. 16:40 Call Respiratory ordered. fg 16:40 Quality Auditor/Pulse Ox/q 15 min VS ordered. fg 16:40 Lr ordered. fg 16:40 Large bore IV x 2 ordered. fg 16:40 Oxygen at 4L/Min NC or Home dosage ordered. fg 16:40 Strep Screen, Nursing ordered. fg 16:40 Intake and Output Hourly ordered. fg 16:41 Chest, 1 View Ordered. EDMS 16:41 -Arterial Blood Gas Ordered. EDMS 16:41 -Blood Culture Ordered. EDMS 16:41 CBC with Diff Ordered. EDMS 16:41 Lactic Acid (Horton tube on ice) Ordered. EDMS 16:41 Liver Profile Ordered. EDMS 16:41 MED Profile Ordered. EDMS 16:41 PT/INR Ordered. EDMS 16:41 PTT Ordered. EDMS 16:41 Type & Screen Ordered. EDMS 16:41 Urinalysis Ordered. EDMS 16:41 Urine Culture Ordered. EDMS 16:43 naloxone 1 mg IVP once ordered. fg 16:46 Call Respiratory complete. ar3 16:47 -Blood Culture (Adults Only), peripheral from different site, or from device/port/PICC ar3 etc. if present complete. 16:47 IV Saline Lock ordered. fg 16:48 Urine Toxicology Ordered. EDMS 16:48 BLOOD CULTURES Ordered. EDMS 16:53 ACETAMINOPHEN LEVEL Ordered. EDMS 16:53 SALICYLATE LEVEL Ordered. EDMS 16:59 NS 0.9% 1000 ml IV at bolus once ordered. fg 17:14 CT Head Without Contrast Ordered. EDMS 17:20 BRAIN NATIURETIC PEPTIDE Ordered. EDMS 17:24 RBC MORPH PROF NO CHARGE Ordered. EDMS 18:17 Penicillin G Proc & Benzathine 1.2 mmu IM once ordered. fg 18:23 CT Chest Angio R/O PE Ordered. EDMS 19:04 ketorolac 30 mg IVP once ordered. fg 19:04 GI Cocktail - (Alum-Mag Hydroxide-Simeth 30 ml, Lidocaine 10 ml, Hyoscyamine 10 ml) PO fg once; Pre-mixed 50mL unit dose ordered. 19:05 -Arterial Blood Gas Ordered. EDMS 19:31 -Arterial Blood Gas Reviewed. mm11 19:31 CBC with Diff Reviewed. mm11 19:31 MED Profile Reviewed. mm11 19:31 PT/INR Reviewed. mm11 19:31 Urinalysis Reviewed. mm11 19:31 ACETAMINOPHEN LEVEL Reviewed. mm11 19:31 SALICYLATE LEVEL Reviewed. mm11 19:31 BRAIN NATIURETIC PEPTIDE Reviewed. mm11 19:31 -Arterial Blood Gas Reviewed. mm11 19:31 Lactic Acid (Horton tube on ice) Reviewed. mm11 19:31 Liver Profile Reviewed. mm11 19:31 PTT Reviewed. mm11 19:31 Type & Screen Reviewed. mm11 19:31 Urine Toxicology Reviewed. mm11 19:31 CARDIAC MARKER PANEL Reviewed. mm11 19:31 RBC MORPH PROF NO CHARGE Reviewed. mm11 19:31 Chest, 1 View Reviewed. mm11 19:31 CT Head Without Contrast Reviewed. mm11 19:31 CT Chest Angio R/O PE Reviewed. mm11 19:37 Financial registration complete. 19:47 Admission / Observation Status ordered. EDMS 19:47 REGULAR DIET ordered. EDMS 19:48 COMPLETE BLOOD COUNT Ordered. EDMS 19:48 RENAL PROFILE Ordered. EDMS 20:01 RESPIRATORY PANEL Ordered. EDMS 20:14 [facility] [place] was scanned into [employer] and attached to record. gjb 21:51 Acetaminophen Tablet 650 mg PO once ordered. ko2 Administered Medications: 16:42 Drug: naloxone 1 mg [naloxone 1 mg/mL injection syringe (1 mL)] Route: IVP; Site: left bcj antecubital; 16:50 Drug: naloxone 1 mg [naloxone 1 mg/mL injection syringe (1 mL)] Route: IVP; Site: left bcj antecubital; 17:13 Drug: NS 0.9% 1000 ml [sodium chloride 0.9 % intravenous solution] Route: IV; Rate: bcj bolus; Site: right antecubital; 17:14 Drug: Acetaminophen 650 mg [acetaminophen 325 mg tablet (2 tabs)] Route: PO; bcj 18:55 Drug: Penicillin G Proc & Benzathine 1.2 mmu [penicillin G benzathine and procaine ja5 1,200,000 unit/2 mL IM syringe (1.2 mmu)] Route: IM; Site: right gluteus; 19:27 Drug: ketorolac 30 mg [ketorolac 30 mg/mL (1 mL) injection solution (1 mL)] Route: IVP; ko2 Site: left hand; 19:27 Drug: GI Cocktail - (Alum-Mag Hydroxide-Simeth Suspension 225 mg-200 mg-25 mg/5 mL 30 ko2 ml, Lidocaine Liquid 2 % 10 ml, Hyoscyamine Liquid 10 ml) Route: PO; 21:45 Drug: Acetaminophen 650 mg [acetaminophen 325 mg tablet (2 tabs)] Route: PO; ko2 21:50 CANCELLED (Duplicate Order): Acetaminophen Tablet 650 mg PO once ko2 Signatures: Dispatcher [employer] EDMS Raiza Arora RN RN jan Barnhardt, Gloria, Bryan Reg Grace Cárdenas, Account Executive Trainee Unit ml3 Abdirahman Toscano, DO DO mm11 Jazmine Gandhi, PIPEFITTER HELPER PIPEFITTER HELPER le Dinora Hernandez, SEWER BRICKLAYER SEWER BRICKLAYER ar3 Kiki Durbin,RN RN ko2 Paola Langley MD MD fg Beck, Gabriela gjb Anderson, Jessica,RN RN ja5 Jose Manuel Plaza RN bcj The chart was reviewed and I authenticate all verbal orders and agree with the evaluation and treatment provided.Corrections: (The following items were deleted from the chart) 16:53 16:48 ACETAMINOPHEN LEVEL+LAB ordered. EDMS EDMS 16:53 16:48 SALICYLATE LEVEL+LAB ordered. EDMS EDMS 17:19 17:13 B-Type NATIURETIC PEPTIDE+LAB ordered. EDMS EDMS 17:19 17:13 TROPONIN+LAB ordered. EDMS EDMS 17:19 17:13 CARDIAC MARKER PANEL+LAB ordered. EDMS EDMS 20:38 16:40 Set up for triple lumen central Iine placement ordered. fg ko2 21:50 21:49 Acetaminophen Tablet 650 mg PO once ordered. ko2 ko2 21:50 21:50 Acetaminophen Tablet 650 mg PO once ordered. ko2 ko2 Attachments: 20:14 [facility] Payment Agreement gjb MTDD
[2016-08-01 23:10] VITALS: BP 98/60
[2016-08-01] MEDS ORDERED: POTASSIUM CHLORIDE 10 MEQ SR TABLET PO ONE (23:15)
[2016-08-01] MEDS: NS 1,000 ML IV SCH (23:44)
[2016-08-02] VITALS (11 sets, daily range): BP systolic 90–109; BP diastolic 50–70
--- NOTE | 2016-08-02 04:11 | HPE ---
DATE OF ADMISSION: 08/01/2016 PRIMARY CARE PROVIDER: None listed. CHIEF COMPLAINT: Chest discomfort, shortness of breath. HISTORY OF PRESENT ILLNESS: 41-year-old female presented to the emergency department, found down at home with respiratory rate in the mid 20s, SpO2 noted to be in the 90s. She was placed on mask non-rebreather at 15 liters. Reported clear lung singh. She was somewhat lethargic, when she presented to the emergency department. She had an oral airway in place and was given etomidate. She was given Narcan here, although her toxicology screen was negative and she does appear to be coming along. She did have a positive strep screen. A qSOFA score was zero. However, the hospitalist was called for further consultation and possible observation overnight. PAST MEDICAL HISTORY: None. PAST SURGICAL HISTORY: Tubal ligation, . SOCIAL HISTORY: She denies tobacco use ever. She denies alcohol use, drug use. No recent travel. No sick contacts. FAMILY HISTORY: Noncontributory. ALLERGIES: SULFA. HOME MEDICATIONS: None. REVIEW OF SYSTEMS: CONSTITUTIONAL: No fevers, chills or rigors. She did state that she came home earlier today and developed chest discomfort worse with deep inspiration and cough and scratchy sore throat. HEENT: She describes sore throat, but no difficulty with speech or swallow. No blurry vision, double vision or tinnitus. PULMONARY: She has some chest discomfort, pleuritic in nature with deep inspiration and cough. No hemoptysis. CARDIOVASCULAR: No substernal chest pain. No PND. No orthopnea. No lower extremity edema. GI: No nausea, vomiting, diarrhea. Bowel movements are regular. She denies any hematochezia or melena. : No dysuria, frequency or hematuria. MUSCULOSKELETAL: No bone, muscle, or joint pain, swelling, erythema. NEURO: No paresthesias or paralysis. ENDOCRINE: Negative for diabetes. Negative for thyroid disorder. LYMPHATICS: No lumps, bumps, swelling in neck, axilla or groin. No night sweats. HEMATOLOGY: No history of bleeding or bruising disorder. No prior history of venous thromboembolism. ONCOLOGY: No history of cancer. PSYCHIATRIC: No history of depression, suicidal ideation. No audiovisual hallucinations. 10-point review of systems complete pertinent positives listed. PHYSICAL EXAMINATION: VITAL SIGNS: Temperature is 102.3, pulse 102, BP is 108/62, SpO2 is 100% on room air. GENERAL: The patient appears to be in no acute distress. She is alert, oriented. HEENT: Unremarkable except for some vague posterior pharynx erythema. No exudate. NECK: Supple. LUNGS: Decreased bibasilar breath sounds. She has clear lung sounds otherwise. She is taking short shallow breaths, but no notable retraction. She is able to speak in complete sentences when she slows her breathing down. HEART: Regular rate and rhythm. ABDOMEN: Soft. EXTREMITIES: No edema or calf tenderness. LABORATORY DATA: White count 3.1, hemoglobin 7.1 and platelets are 280. Sodium 141, potassium 3.3, chloride 108, bicarbonate 22, anion gap 11, BUN is 10, creatinine 0.99, glucose 98, lactic acid 1.9, bilirubin 0.85, direct bilirubin 0.1, AST 19, ALT 17, alkaline phosphatase is 63, CK is 149, CK-MB is 1.0, troponin less than 0.02. BNP 101, albumin is 3.9. Toxicology screen negative. Urinalysis 1+ ketones, otherwise negative. PT 11.9, INR 0.87, PTT is 31.9. Blood cultures pending times two. Urine culture is pending. CT head: No acute intracranial processes noted. Chest x-ray: No acute cardiopulmonary issues. No infiltrate. No consolidation. CT angiogram of the chest: No evidence of PT. Minimal right basilar atelectasis, two small partially calcified nodules in the left lower lobe faintly visible on CT dated for 2011 and represents chronic changes. 12-lead EKG: Sinus rhythm with no acute ST-T wave abnormality. IMPRESSION: Ms. Gonzalez is a 41-year-old female who presented to the emergency department with some respiratory issues. Initially her blood gas showed a pH 7.706, pCO2 13.9; this is consistent with respiratory alkalosis and likely hyperventilation. We did repeat an ABG pH 7.582, pCO2 is 18.7, which showed some improvement and the patient is slowing her breathing down at this time. Apparently, she tested positive with her rapid strep, was given penicillin G. She did receive some naloxone and was given some IV fluids, ketorolac for pain. At any rate, I would like to observe her overnight, get her chest discomfort under better control, which is most likely related to pleuritic pain. Will also add on a respiratory panel as well since we have been seeing a lot of respiratory infections here recently. PROBLEM LIST: 1. Respiratory distress. However, the patient did have respiratory alkalosis noted on ABG most likely related to hyperventilation. 2. Strep pharyngitis. 3. Pleuritic chest pain with negative CT scan for PE. 4. Hypokalemia, which we will replete. PLAN: The patient will be admitted to medical-surgical floor as observation status. Will continue to push fluids through the night, Tylenol and Motrin for pain. Will start her on oral Pen-Vee K 500 mg three times a day. We will check a respiratory panel, as needed DuoNebs if needed, DVT prophylaxis with Lovenox. DISPOSITION: Anticipate home discharge tomorrow.
[2016-08-02] MEDS: NS 1,000 ML IV SCH ×2 (05:45→15:28)
[2016-08-02] MEDS: IBUPROFEN 600 MG TAB PO PRN ×2 (05:54→20:02)
[2016-08-02] MEDS: ONDANSETRON 4MG/2ML VIAL (J2405) IV PRN (05:55)
[2016-08-02 06:58] LABS: MEAN CORPUSCULAR HEMOGLOBIN 18.8 pg (27.0-33.0); MEAN CORPUSCULAR HGB CONC 27.6 g/dl (32.0-36.5); MEAN CORPUSCULAR VOLUME 67.9 fl (80.0-96.0)
[2016-08-02 07:07] LABS: ALBUMIN 3.4 GM/DL (3.2-5.2); ANION GAP 10 MEQ/L (8-16); BLOOD UREA NITROGEN 12 MG/DL (7-18); CALCIUM LEVEL 8.1 MG/DL (8.5-10.1); CARBON DIOXIDE LEVEL 21 MEQ/L (21-32); CHLORIDE LEVEL 110 MEQ/L (98-107); CREATININE FOR GFR 0.88 MG/DL (0.55-1.02); GLOMERULAR FILTRATION RATE > 60.0 (>58); GLUCOSE, FASTING 91 MG/DL (70-105); PHOSPHORUS LEVEL 2.5 MG/DL (2.5-4.9); POTASSIUM SERUM 3.6 MEQ/L (3.5-5.1); SODIUM LEVEL 141 MEQ/L (136-145)
[2016-08-02 08:15] LABS: REASON FOR REVIEW ANEMIA / RBC MORPH
[2016-08-02] MEDS: PENICILLIN V POTASSIUM 500 MG TAB PO SCH ×3 (08:20→21:28)
[2016-08-02 08:24] LABS: RETIC HEMOGLOBIN CONTENT CHr 21.2 PG (24-36); RETICULOCYTE ABSOLUTE ADVIA212 55 x10(9)/L (17-77)
--- NOTE | 2016-08-02 08:27 | ECGEPIP ---
Stationary ECG Study 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
[2016-08-02 08:37] LABS: PERCENT SATURATION 2.6 % (13.2-37.4)
[2016-08-02] MEDS: PERCOCET 5MG/325MG TAB PO PRN ×3 (08:45→21:29)
[2016-08-02] MEDS: OSELTAMIVIR PHOSPHATE 75 MG CAP (TAMIFLU) PO SCH ×2 (09:55→21:28)
--- NOTE | 2016-08-02 12:11 | IPNPDOC ---
Subjective Date Seen The patient was seen on 08/02/16. Subjective Chief Complaint/HPI The patient is a 41-year-old female admitted with a reason for visit of Respiratory Alkalosis/Strep Pharyngitis. Events since last encounter complains of chest pain and sob. Objective Physical Examination General Exam: Positive: Alert, No Acute Distress Eye Exam: Positive: Conjunctiva & lids normal, EOMI, PERRLA, Negative: Sclera icteric ENT Exam: Positive: Atraumatic, Mucous membr. moist/pink, Pharynx Normal Neck Exam: Positive: Supple, Negative: JVD, thyromegaly Chest Exam: Positive: Clear to auscultation Heart Exam: Positive: Normal S1, Normal S2, Rate Normal, Regular Rhythm, Negative: Murmurs, Rubs Abdomen Exam: Positive: Normal bowel sounds, Soft, Negative: Hepatospenomegaly, Tenderness Extremity Exam: Positive: Normal pulses, Negative: Clubbing, Cyanosis, Edema Assessment /Plan Problems (1) Influenza Status: Acute Problem Text: influenza B will start on tamiflu and put on isolation. continue with albuterol nebulizations prn. (2) Strep pharyngitis Status: Acute Problem Text: strep screen was positive in the ED. will continue with penicillin. (3) Respiratory alkalosis Status: Acute Problem Text: looks like respiratory and metabolic alkalosis. due to hyperventilation and dehydration and hypokalemia repeat abg showed improvement after ivf. will replace potassium. (4) Anemia Status: Acute Problem Text: acute on chronic has severe iron deficiency possibly due to menstrual losses, will check fecal occult blood. will transfuse now and start on iron supplementation. vit b12 and folate pending. Plan/VTE VTE Prophylaxis Ordered?: Yes VS, I&O, 24H, Fishbone Vital Signs/I&O Vital Signs Date Time Temp Pulse Resp B/P Pulse Ox O2 Delivery O2 Flow Rate FiO2 08/02/16 12:01 Room Air 08/02/16 11:50 100.1 88 22 96/60 98 I&O- Last 24 Hours up to 6 AM 08/02/16 06:00 Output Total 400 ml Balance -400 ml Laboratory Data 24H LABS Laboratory Tests 2 08/01/16 16:38: Acetaminophen Level < 2.0L, Activated Partial Thromboplast Time 31.9, Aspartate Amino Transf (AST/SGOT) 19, Alanine Aminotransferase (ALT/SGPT) 17, Alkaline Phosphatase 63, Total Bilirubin 0.5, Direct Bilirubin 0.1, Albumin 3.9, Albumin/ Globulin Ratio 1.05, Anion Gap 11, Anisocytosis 1+, B-Type Natriuretic Peptide 101H, White Blood Count 3.1L, Red Blood Count 3.86L, Hemoglobin 7.1L, Hematocrit 25.9L, Mean Corpuscular Volume 67.1L, Mean Corpuscular Hemoglobin 18.4L, Mean Corpuscular Hemoglobin Concent 27.4L, Red Cell Distribution Width 16.8H, Platelet Count 280, Neutrophils (%) (Auto) 72.1H, Lymphocytes (%) (Auto) 13.4L, Monocytes (%) (Auto) 9.1H, Eosinophils (%) (Auto) 2.8, Basophils (%) ( Auto) 1.5H, Neutrophils # (Auto) 2.3, Lymphocytes # (Auto) 0.5L, Monocytes # ( Auto) 0.3, Eosinophils # (Auto) 0.1, Basophils # (Auto) 0.0, Calcium Level 8.4L , Creatine Kinase MB 1.0, Creatine Kinase MB Relative Index 0.67, Glomerular Filtration Rate > 60.0, Hypochromasia 2+, Lactic Acid (Sepsis) 1.9, Large Unclassified Cells # 0.0, Large Unclassified Cells % 1.2, Microcytosis 2+, Platelet Estimate NORMAL, Prothromb Time International Ratio 0.87, Prothrombin Time 11.9L, Salicylates Level < 1.7L, Total Creatine Kinase 149, Total Protein 7.6, Troponin I < 0.02 08/01/16 16:43: Arterial Blood pH 7.706*H, Arterial Blood Partial Pressure CO2 13.9*L, Arterial Blood Partial Pressure O2 113.4H, Arterial Blood Total CO2 17.5L, Arterial Blood HCO3 17.0L, Arterial Blood Base Excess -2.0, Arterial Blood Oxygen Saturation 99.1H, Blood Gas Bicarbonate Standard 22.8, Oxygen Delivery Device NASAL VERÓNICA 08/01/16 16:49: Urine Amorphous Sediment , Urine Amphetamines Screen NEGATIVE, Urine Benzodiazepines Screen NEGATIVE, Urine Opiates Screen NEGATIVE, Urine Appearance CLEAR, Urine Color STRAW, Urine pH 7.0, Urine Specific [place] 1.012 , Urine Protein NEGATIVE, Urine Glucose (UA) NEGATIVE, Urine Ketones 1+H, Urine Urobilinogen 0.2, Urine Bilirubin NEGATIVE, Urine Leukocyte Esterase NEGATIVE, Urine Bacteria (Auto) NEGATIVE, Urine Barbiturates Screen NEGATIVE, Urine Blood NEGATIVE, Urine Calcium Carbonate Cryst(Auto) , Urine Calcium Oxalate Cryst ( Auto) , Urine Calcium Phosphate Quyen (Auto) , Urine Cannabinoids Screen NEGATIVE , Urine Cellular Casts , Urine Cocaine Metabolite Screen NEGATIVE, Urine Cystine Crystals , Urine Granular Casts (Auto) , Urine Hyaline Casts (Auto) 0, Urine Leucine Crystals , Urine Methadone Screen NEGATIVE, Urine Mucus (Auto) , Urine Nitrite NEGATIVE, Urine Oval Fat Bodies (Auto) , Urine RBC (Auto) 0, Urine Renal Epithelial Cells , Urine Sperm (Auto) , Urine Squamous Epithelial Cells 0, Urine Transitional Epithelial Cells , Urine Trichomonas (Auto) , Urine Tricyclic Antidepressants NEGATIVE, Urine Triple Phosphate Cryst (Auto) , Urine Tyrosine Crystals , Urine Uric Acid Crystals (Auto) , Urine WBC (Auto) 1, Urine Waxy Casts (Auto) , Urine Yeast-Like Cells (Auto) 08/01/16 19:15: Arterial Blood pH 7.582H, Arterial Blood Partial Pressure CO2 18.7*L, Arterial Blood Partial Pressure O2 137.4H, Arterial Blood Total CO2 17.8L, Arterial Blood HCO3 17.2L, Arterial Blood Base Excess -4.0L, Arterial Blood Oxygen Saturation 99.1H, Blood Gas Bicarbonate Standard 21.1L, Oxygen Delivery Device NASAL VERÓNICA 08/02/16 06:34: Albumin 3.4, Blood Urea Nitrogen 12, Creatinine 0.88, Sodium Level 141, Potassium Level 3.6, Chloride Level 110H, Carbon Dioxide Level 21, Anion Gap 10 , Calcium Level 8.1L, Glomerular Filtration Rate > 60.0, Phosphorus Level 2.5 08/02/16 07:34: Absolute Reticulocyte Count 55, Differential Pathologist's Review ANEMIA / RBC MORPH, Differential Slide Review Report, Percent Reticulocyte Count 1.70H, Peripheral Blood Smear Path Consult PERIPHERAL SMEAR, Reticulocyte Hgb Content ( CHr) 21.2L 08/02/16 07:51: Ferritin 5L, Iron Level 10L, Total Iron Binding Capacity 382, Transferrin % Saturation 2.6L CBC/BMP Laboratory Tests 08/01/16 16:38 Red Blood Count 3.86 L, Mean Corpuscular Volume 67.1 L, Mean Corpuscular Hemoglobin 18.4 L, Mean Corpuscular Hemoglobin Concent 27.4 L, Red Cell Distribution Width 16.8 H, Neutrophils (%) (Auto) 72.1 H, Lymphocytes (%) (Auto ) 13.4 L, Monocytes (%) (Auto) 9.1 H, Eosinophils (%) (Auto) 2.8, Basophils (%) (Auto) 1.5 H, Neutrophils # (Auto) 2.3, Lymphocytes # (Auto) 0.5 L, Monocytes # (Auto) 0.3, Eosinophils # (Auto) 0.1, Basophils # (Auto) 0.0 08/02/16 06:34 Red Blood Count 3.28 L, Mean Corpuscular Volume 67.9 L, Mean Corpuscular Hemoglobin 18.8 L, Mean Corpuscular Hemoglobin Concent 27.6 L, Red Cell Distribution Width 17.0 H, Anion Gap 10 Microbiology Microbiology 08/01/16 Blood Culture, Received Pending 08/01/16 Blood Culture, Received Pending 08/02/16 Respiratory Virus Panel (PCR) (RONIT) - Final, Complete Influenza B 08/01/16 Urine Culture, Received Pending JEWEL SHIRLEY MD Aug 02, 2016 12:11
[2016-08-02] MEDS ORDERED: PERCOCET 5MG/325MG TAB PO PRN (21:15)
[2016-08-03 00:55] VITALS: BP 90/50
[2016-08-03] MEDS: NS 1,000 ML IV SCH ×3 (01:11→19:47)
[2016-08-03] MEDS: ONDANSETRON 4MG/2ML VIAL (J2405) IV PRN ×2 (01:49→15:28)
[2016-08-03] MEDS: PERCOCET 5MG/325MG TAB PO PRN ×3 (02:35→20:47)
[2016-08-03 06:08] LABS: ABG BASE EXCESS -7.3 (-2.0-2.0); ABG HCO3 18.2 MEQ/L (22.0-26.0); ABG PARTIAL PRESSURE CO2 36.4 mmHg (35.0-45.0); ABG PARTIAL PRESSURE O2 95.7 mmHg (75.0-100.0); ABG STANDARD HCO3 18.4 MEQ/L (22.0-26.0); ABG TOTAL CO2 19.3 MEQ/L (22.0-29.0); ABG pH (ARTERIAL) 7.316 UNITS (7.350-7.450)
[2016-08-03 07:21] LABS: MEAN CORPUSCULAR HEMOGLOBIN 22.2 pg (27.0-33.0); MEAN CORPUSCULAR HGB CONC 29.7 g/dl (32.0-36.5); RED CELL DISTRIBUTION WIDTH 19.7 % (11.5-14.5); WHITE BLOOD COUNT 3.7 K/mm3 (4.0-10.0)
[2016-08-03 07:47] LABS: ALBUMIN 2.9 GM/DL (3.2-5.2); ANION GAP 11 MEQ/L (8-16); BLOOD UREA NITROGEN 9 MG/DL (7-18); CALCIUM LEVEL 7.8 MG/DL (8.5-10.1); CARBON DIOXIDE LEVEL 20 MEQ/L (21-32); CHLORIDE LEVEL 111 MEQ/L (98-107); CREATININE FOR GFR 0.78 MG/DL (0.55-1.02); GLOMERULAR FILTRATION RATE > 60.0 (>58); GLUCOSE, FASTING 69 MG/DL (70-105); PHOSPHORUS LEVEL 2.8 MG/DL (2.5-4.9); POTASSIUM SERUM 3.8 MEQ/L (3.5-5.1); SODIUM LEVEL 142 MEQ/L (136-145)
[2016-08-03 08:00] VITALS: BP 97/52
[2016-08-03] MEDS: OSELTAMIVIR PHOSPHATE 75 MG CAP (TAMIFLU) PO SCH ×2 (08:35→20:45)
[2016-08-03] MEDS: PENICILLIN V POTASSIUM 500 MG TAB PO SCH ×3 (08:35→20:45)
[2016-08-03] MEDS: IBUPROFEN 600 MG TAB PO PRN ×2 (08:39→20:47)
--- NOTE | 2016-08-03 08:46 | IPNPDOC ---
Text Note Date of Service The patient was seen on 08/03/16. NOTE Subjective: Patient is a 41-year-old female who was admitted with strep pharyngitis and influenza seen for hospital follow-up. Patient says that she "feels like crap." She does mention that she is feeling a little bit better than yesterday. She says that her throat still hurts. She says she is breathing better than yesterday and denies any shortness of breath. She is having on and off fevers and is complaining of diffuse musculoskeletal pains. She is having nausea but denies any vomiting or abdominal pain. Objective: Vital signs: Temperature 98.4, MAXIMUM TEMPERATURE 102.9, pulse 81, respiratory rate 18, blood pressure 90/50, pulse ox 97% on room air Gen.: Patient awake, alert and oriented, verbal and able to answer questions appropriately. Patient does not appear to be in any acute distress Heart: Regular rate and rhythm, normal S1-S2. No murmurs, rubs, clicks or gallops Lungs: Clear to auscultation bilaterally. No wheezes, rales or rhonchi Abdomen: Active bowel sounds, soft, nontender, no masses to palpation Extremities: No swelling in either lower extremity Laboratory data: CBC: With blood cells 3.7, H&H 8.3/27.8, platelets 164 Hemoglobin and hematocrit from 08/02/16 at 2141:8.6/28.3 Chemistry: Sodium 142, potassium 3.8, chloride 111, current Axid 20, BUN 9, creatinine 0.78, glucose 69, calcium 7.8, phosphorus 8.2, albumin 2.9 ABG: PH 7.61, PCO2 36.4, PO2 95.7, HCO3 18.2, oxygen saturation 97.5 Iron studies: Iron 10, TIBC 382, transferrin percent saturation 2.6%, ferritin 5 Vitamin B12 270 Folate told 0.9 Microbiology: Blood cultures 2 no growth after 24 hours Urine culture no growth after 24 hours Pathology: Microcytic hypochromic anemia with decreased serum iron and very low/absent ferritin. Prior normal MCV values, now decreased MCV, most consistent with iron deficiency anemia or a multifactorial anemia with a component of iron deficiency anemia Assessment: Patient is a 41-year-old female with strep pharyngitis and influenza. She is continuing to have fevers but is showing some improvement. Plan: #1: Acute influenza: Patient with influenza B. Currently on Tamiflu 75 mg by mouth twice a day, Tylenol 650 mg by mouth every 4 hours when necessary, ibuprofen 600 mg by mouth every 8 hours when necessary, Zofran 4 mg grams IV every 6 hours when necessary precautions. Patient will continue with albuterol nebulizations as needed. Patient currently continuing to have fevers. Order will placed for incentive spirometry. #2: Strep pharyngitis: We will check a ASO titer. Patient will continue on penicillin V 500 mg by mouth 3 times a day. Orders placed for incentive spirometry. #3: Compensated metabolic acidosis: Suspect secondary to above infections #4: Respiratory alkalosis: Resolved #5: Iron deficiency anemia: Patient status post transfusion of 2 units packed red blood cells, vitamin B12 and folate levels pending. Patient has not yet had a stool for occult blood. Drop in hemoglobin from last night could be dilutional, patient is +1.5 L between yesterday and this morning. Continue to monitor daily CBC. Order placed for ferrous sulfate 325 mg by mouth twice a day. My preceptor for this patient encounter was physically present in the building during the encounter and was fully available. As needed, all aspects of the patient interview, examination, medical decision making process, and medical care plan development were reviewed and approved by the preceptor. Preceptor is aware and concurs with the plan as stated in the body of this note and will attest to such by his/her cosignatyamilet LEIVA,Jes, I+O VS, Jes, I+O Laboratory Tests 08/02/16 21:41 08/03/16 06:47 Anion Gap 11 Vital Signs Date Time Temp Pulse Resp B/P Pulse Ox O2 Delivery O2 Flow Rate FiO2 08/03/16 04:00 98.4 81 18 97 Room Air 08/03/16 00:55 90/50 I&O- Last 24 Hours up to 6 AM 08/03/16 06:00 Intake Total 4016 ml Output Total 2025 ml Balance 1991 ml YINA AYALA DO Aug 03, 2016 08:46
[2016-08-03 08:53] LABS: MEAN CORPUSCULAR VOLUME 74.8 fl (80.0-96.0)
[2016-08-03 10:13] LABS: FOLATE 12.9 NG/ML (>5.4)
[2016-08-03] MEDS: FERROUS SULFATE 325MG TAB PO SCH ×2 (13:16→20:45)
[2016-08-03] MEDS: CEPACOL LOZENGE PO PRN ×2 (15:28→20:46)
[2016-08-03 16:00] VITALS: BP 108/66
[2016-08-03 20:00] VITALS: BP 117/71
[2016-08-04] VITALS: BP 111/70
--- NOTE | 2016-08-04 00:06 | EDDOCDS ---
Physician Documentation [facility] Name: Vicky Gonzalez Age: 41 yrs Sex: Female : 1975 Arrival Date: 08/01/2016 Time: 16:32 Bed Admit Hold Private MD: NO PRIMARY PHYSICIAN, . Disposition: 08/01/16 20:35 Hospitalization ordered by Rafat Smart for Inpatient Admission. Preliminary diagnosis are Acute respiratory failure with hypoxia, Streptococcal pharyngitis. - Bed requested for M PED. - Status is Inpatient Admission. rinku - Condition is Stable. - Problem is an acute exacerbation. - Symptoms have improved. Historical: - Allergies: SULFA (SULFONAMIDES); - Home Meds: 1. none - PMHx: none; - PSHx: Tubal ligation; ; - Social history: Smoking status: Patient states was never smoker of tobacco. No barriers to communication noted, The patient speaks fluent Samoan. - Family history: Not pertinent. - : The pt / caregiver states he / she is not on anticoagulants. Home medication list is obtained from the patient. - Exposure Risk Screening:: None identified. 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/01 16:40 LMP 07/18/2016 ja5 Vital Signs: 16:36 BP 138 / 68 (auto/); ja5 16:36 Pulse 97 MON; Pulse Ox 100% ; ja5 16:40 BP 123 / 58; Pulse 89; Resp 36; Temp 102.3; Pulse Ox 100% on R/A; Pain 10/10; ja5 16:43 BP 123 / 58 (auto/); ja5 16:43 Pulse 114 MON; Pulse Ox 100% ; ja5 16:45 BP 117 / 55 (auto/); ja5 16:46 Pulse 108 MON; Pulse Ox 100% ; ja5 17:00 Temp 102.3(R); ld5 17:00 BP 108 / 57 (auto/); ja5 17:00 Pulse 100 MON; Pulse Ox 100% ; ja5 17:15 BP 118 / 55 (auto/); ja5 17:15 Pulse 100 MON; Pulse Ox 100% ; ja5 17:21 Pulse 98 MON; Pulse Ox 100% ; ja5 17:30 BP 115 / 61 (auto/); ja5 17:44 Pulse 97 MON; Pulse Ox 100% ; ja5 17:45 BP 109 / 58 (auto/); ja5 18:00 BP 112 / 69 (auto/); ja5 18:00 Pulse 100 MON; Pulse Ox 100% ; ja5 18:15 BP 111 / 70 (auto/); ja5 18:15 Pulse 103 MON; Pulse Ox 100% ; ja5 18:30 BP 108 / 59 (auto/); ja5 18:30 Pulse 105 MON; Pulse Ox 100% ; ja5 18:34 Pulse 102 MON; Pulse Ox 100% ; ja5 18:45 BP 108 / 62 (auto/); ja5 19:00 BP 107 / 64 (auto/); ko2 19:00 Pulse 108 MON; Pulse Ox 100% ; ko2 19:15 BP 102 / 58 (auto/); ko2 19:15 Pulse 95 MON; Pulse Ox 100% ; ko2 19:30 BP 103 / 58 (auto/); ko2 19:30 Pulse 94 MON; Pulse Ox 100% ; ko2 19:45 BP 106 / 60 (auto/); ko2 19:45 Pulse 98 MON; Pulse Ox 99% ; ko2 21:43 BP 103 / 62; Pulse 92; Resp 16; Temp 102.1; Pulse Ox 99% ; Pain 8/10; ko2 22:50 Temp 101(TE); ko2 MDM: 16:35 Call Respiratory ordered. le 16:36 Call Respiratory complete. ar3 16:36 -Arterial Blood Gas Ordered. EDMS 16:39 ECG WITH READING ER PHYS+CARDIAG ordered. EDMS 16:40 naloxone 1 mg IVP once ordered. fg 16:40 Acetaminophen Tablet 650 mg PO once ordered. fg 16:40 -Blood Culture (Adults Only), peripheral from different site, or from device/port/PICC fg etc. if present ordered. 16:40 Call Respiratory ordered. fg 16:40 Assistant Bookkeeper/Pulse Ox/q 15 min VS ordered. fg 16:40 Lr ordered. fg 16:40 Large bore IV x 2 ordered. fg 16:40 Oxygen at 4L/Min NC or Home dosage ordered. fg 16:40 Strep Screen, Nursing ordered. fg 16:40 Intake and Output Hourly ordered. fg 16:41 Chest, 1 View Ordered. EDMS 16:41 -Arterial Blood Gas Ordered. EDMS 16:41 -Blood Culture Ordered. EDMS 16:41 CBC with Diff Ordered. EDMS 16:41 Lactic Acid (Horton tube on ice) Ordered. EDMS 16:41 Liver Profile Ordered. EDMS 16:41 MED Profile Ordered. EDMS 16:41 PT/INR Ordered. EDMS 16:41 PTT Ordered. EDMS 16:41 Type & Screen Ordered. EDMS 16:41 Urinalysis Ordered. EDMS 16:41 Urine Culture Ordered. EDMS 16:43 naloxone 1 mg IVP once ordered. fg 16:46 Call Respiratory complete. ar3 16:47 -Blood Culture (Adults Only), peripheral from different site, or from device/port/PICC ar3 etc. if present complete. 16:47 IV Saline Lock ordered. fg 16:48 Urine Toxicology Ordered. EDMS 16:48 BLOOD CULTURES Ordered. EDMS 16:53 ACETAMINOPHEN LEVEL Ordered. EDMS 16:53 SALICYLATE LEVEL Ordered. EDMS 16:59 NS 0.9% 1000 ml IV at bolus once ordered. fg 17:14 CT Head Without Contrast Ordered. EDMS 17:20 BRAIN NATIURETIC PEPTIDE Ordered. EDMS 17:24 RBC MORPH PROF NO CHARGE Ordered. EDMS 18:17 Penicillin G Proc & Benzathine 1.2 mmu IM once ordered. fg 18:23 CT Chest Angio R/O PE Ordered. EDMS 19:04 ketorolac 30 mg IVP once ordered. fg 19:04 GI Cocktail - (Alum-Mag Hydroxide-Simeth 30 ml, Lidocaine 10 ml, Hyoscyamine 10 ml) PO fg once; Pre-mixed 50mL unit dose ordered. 19:05 -Arterial Blood Gas Ordered. EDMS 19:31 -Arterial Blood Gas Reviewed. mm11 19:31 CBC with Diff Reviewed. mm11 19:31 MED Profile Reviewed. mm11 19:31 PT/INR Reviewed. mm11 19:31 Urinalysis Reviewed. mm11 19:31 ACETAMINOPHEN LEVEL Reviewed. mm11 19:31 SALICYLATE LEVEL Reviewed. mm11 19:31 BRAIN NATIURETIC PEPTIDE Reviewed. mm11 19:31 -Arterial Blood Gas Reviewed. mm11 19:31 Lactic Acid (Horton tube on ice) Reviewed. mm11 19:31 Liver Profile Reviewed. mm11 19:31 PTT Reviewed. mm11 19:31 Type & Screen Reviewed. mm11 19:31 Urine Toxicology Reviewed. mm11 19:31 CARDIAC MARKER PANEL Reviewed. mm11 19:31 RBC MORPH PROF NO CHARGE Reviewed. mm11 19:31 Chest, 1 View Reviewed. mm11 19:31 CT Head Without Contrast Reviewed. mm11 19:31 CT Chest Angio R/O PE Reviewed. mm11 19:37 Financial registration complete. 19:47 Admission / Observation Status ordered. EDMS 19:47 REGULAR DIET ordered. EDMS 19:48 COMPLETE BLOOD COUNT Ordered. EDMS 19:48 RENAL PROFILE Ordered. EDMS 20:01 RESPIRATORY PANEL Ordered. EDMS 20:14 [facility] [place] Payment Agreement was scanned into [employer] and attached to record. gjb 21:51 Acetaminophen Tablet 650 mg PO once ordered. ko2 08/02 09:42 T-Sheet-- Draft Copy was scanned into [employer] and attached to record. jp5 08/03 09:42 PCR was scanned into [employer] and attached to record. lg Administered Medications: 08/01 16:42 Drug: naloxone 1 mg [naloxone 1 mg/mL injection syringe (1 mL)] Route: IVP; Site: left bcj antecubital; 16:50 Drug: naloxone 1 mg [naloxone 1 mg/mL injection syringe (1 mL)] Route: IVP; Site: left bcj antecubital; 17:13 Drug: NS 0.9% 1000 ml [sodium chloride 0.9 % intravenous solution] Route: IV; Rate: bcj bolus; Site: right antecubital; 17:14 Drug: Acetaminophen 650 mg [acetaminophen 325 mg tablet (2 tabs)] Route: PO; bcj 18:55 Drug: Penicillin G Proc & Benzathine 1.2 mmu [penicillin G benzathine and procaine ja5 1,200,000 unit/2 mL IM syringe (1.2 mmu)] Route: IM; Site: right gluteus; 19:27 Drug: ketorolac 30 mg [ketorolac 30 mg/mL (1 mL) injection solution (1 mL)] Route: IVP; ko2 Site: left hand; 19:27 Drug: GI Cocktail - (Alum-Mag Hydroxide-Simeth Suspension 225 mg-200 mg-25 mg/5 mL 30 ko2 ml, Lidocaine Liquid 2 % 10 ml, Hyoscyamine Liquid 10 ml) Route: PO; 21:45 Drug: Acetaminophen 650 mg [acetaminophen 325 mg tablet (2 tabs)] Route: PO; ko2 21:50 CANCELLED (Duplicate Order): Acetaminophen Tablet 650 mg PO once ko2 Signatures: Dispatcher [employer] EDMS Raiza Arora, RN RN rinku Armandolucero, Arlette, Reg Reg gb Lucas Morton, Reg Reg lg Grace Kaur, Beater Operator Unit ml3 Abdirahman Toscano, DO DO mm11 Oksana, Jazmine, ULTIMATE HOOPS TRAINER ULTIMATE HOOPS TRAINER le David, Dinora, DATE PITTER DATE PITTER ar3 Kiki Durbin RN RN ko2 Jazmin Coffey jp5 Paola Langley MD MD fg Beck, Gabriela gjb Anderson, Jessica, RN RN ja5 Johnson, Bruce RN bcj The chart was reviewed and I authenticate all verbal orders and agree with the evaluation and treatment provided.Corrections: (The following items were deleted from the chart) 16:53 16:48 ACETAMINOPHEN LEVEL+LAB ordered. EDMS EDMS 16:53 16:48 SALICYLATE LEVEL+LAB ordered. EDMS EDMS 17:19 17:13 B-Type NATIURETIC PEPTIDE+LAB ordered. EDMS EDMS 17:19 17:13 TROPONIN+LAB ordered. EDMS EDMS 17:19 17:13 CARDIAC MARKER PANEL+LAB ordered. EDMS EDMS 20:38 16:40 Set up for triple lumen central Iine placement ordered. fg ko2 21:50 21:49 Acetaminophen Tablet 650 mg PO once ordered. ko2 ko2 21:50 21:50 Acetaminophen Tablet 650 mg PO once ordered. ko2 ko2 Attachments: 20:14 [facility] [place] Payment Agreement gjb 08/02 09:42 T-Sheet-- Draft Copy jp5 Chart Complete MTDD
--- NOTE | 2016-08-04 00:06 | EDDOCDS ---
Physician Documentation [facility] Name: Vicky Gonzalez Age: 41 yrs Sex: Female : 1975 Arrival Date: 08/01/2016 Time: 16:32 Bed Admit Hold Private MD: NO PRIMARY PHYSICIAN, . Disposition: 08/01/16 20:35 Hospitalization ordered by Rafat Smart for Inpatient Admission. Preliminary diagnosis are Acute respiratory failure with hypoxia, Streptococcal pharyngitis. - Bed requested for M PED. - Status is Inpatient Admission. rinku - Condition is Stable. - Problem is an acute exacerbation. - Symptoms have improved. Historical: - Allergies: SULFA (SULFONAMIDES); - Home Meds: 1. none - PMHx: none; - PSHx: Tubal ligation; ; - Social history: Smoking status: Patient states was never smoker of tobacco. No barriers to communication noted, The patient speaks fluent [place]. - Family history: Not pertinent. - : The pt / caregiver states he / she is not on anticoagulants. Home medication list is obtained from the patient. - Exposure Risk Screening:: None identified. 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:40 LMP 07/18/2016 ja5 Vital Signs: 16:36 BP 138 / 68 (auto/); ja5 16:36 Pulse 97 MON; Pulse Ox 100% ; ja5 16:40 BP 123 / 58; Pulse 89; Resp 36; Temp 102.3; Pulse Ox 100% on R/A; Pain 10/10; ja5 16:43 BP 123 / 58 (auto/); ja5 16:43 Pulse 114 MON; Pulse Ox 100% ; ja5 16:45 BP 117 / 55 (auto/); ja5 16:46 Pulse 108 MON; Pulse Ox 100% ; ja5 17:00 Temp 102.3(R); ld5 17:00 BP 108 / 57 (auto/); ja5 17:00 Pulse 100 MON; Pulse Ox 100% ; ja5 17:15 BP 118 / 55 (auto/); ja5 17:15 Pulse 100 MON; Pulse Ox 100% ; ja5 17:21 Pulse 98 MON; Pulse Ox 100% ; ja5 17:30 BP 115 / 61 (auto/); ja5 17:44 Pulse 97 MON; Pulse Ox 100% ; ja5 17:45 BP 109 / 58 (auto/); ja5 18:00 BP 112 / 69 (auto/); ja5 18:00 Pulse 100 MON; Pulse Ox 100% ; ja5 18:15 BP 111 / 70 (auto/); ja5 18:15 Pulse 103 MON; Pulse Ox 100% ; ja5 18:30 BP 108 / 59 (auto/); ja5 18:30 Pulse 105 MON; Pulse Ox 100% ; ja5 18:34 Pulse 102 MON; Pulse Ox 100% ; ja5 18:45 BP 108 / 62 (auto/); ja5 19:00 BP 107 / 64 (auto/); ko2 19:00 Pulse 108 MON; Pulse Ox 100% ; ko2 19:15 BP 102 / 58 (auto/); ko2 19:15 Pulse 95 MON; Pulse Ox 100% ; ko2 19:30 BP 103 / 58 (auto/); ko2 19:30 Pulse 94 MON; Pulse Ox 100% ; ko2 19:45 BP 106 / 60 (auto/); ko2 19:45 Pulse 98 MON; Pulse Ox 99% ; ko2 21:43 BP 103 / 62; Pulse 92; Resp 16; Temp 102.1; Pulse Ox 99% ; Pain 8/10; ko2 22:50 Temp 101(TE); ko2 MDM: 16:35 Call Respiratory ordered. le 16:36 Call Respiratory complete. ar3 16:36 -Arterial Blood Gas Ordered. EDMS 16:39 ECG WITH READING ER PHYS+CARDIAG ordered. EDMS 16:40 naloxone 1 mg IVP once ordered. fg 16:40 Acetaminophen Tablet 650 mg PO once ordered. fg 16:40 -Blood Culture (Adults Only), peripheral from different site, or from device/port/PICC fg etc. if present ordered. 16:40 Call Respiratory ordered. fg 16:40 Vacuum Metalizing Supervisor/Pulse Ox/q 15 min VS ordered. fg 16:40 Lr ordered. fg 16:40 Large bore IV x 2 ordered. fg 16:40 Oxygen at 4L/Min NC or Home dosage ordered. fg 16:40 Strep Screen, Nursing ordered. fg 16:40 Intake and Output Hourly ordered. fg 16:41 Chest, 1 View Ordered. EDMS 16:41 -Arterial Blood Gas Ordered. EDMS 16:41 -Blood Culture Ordered. EDMS 16:41 CBC with Diff Ordered. EDMS 16:41 Lactic Acid (Horton tube on ice) Ordered. EDMS 16:41 Liver Profile Ordered. EDMS 16:41 MED Profile Ordered. EDMS 16:41 PT/INR Ordered. EDMS 16:41 PTT Ordered. EDMS 16:41 Type & Screen Ordered. EDMS 16:41 Urinalysis Ordered. EDMS 16:41 Urine Culture Ordered. EDMS 16:43 naloxone 1 mg IVP once ordered. fg 16:46 Call Respiratory complete. ar3 16:47 -Blood Culture (Adults Only), peripheral from different site, or from device/port/PICC ar3 etc. if present complete. 16:47 IV Saline Lock ordered. fg 16:48 Urine Toxicology Ordered. EDMS 16:48 BLOOD CULTURES Ordered. EDMS 16:53 ACETAMINOPHEN LEVEL Ordered. EDMS 16:53 SALICYLATE LEVEL Ordered. EDMS 16:59 NS 0.9% 1000 ml IV at bolus once ordered. fg 17:14 CT Head Without Contrast Ordered. EDMS 17:20 BRAIN NATIURETIC PEPTIDE Ordered. EDMS 17:24 RBC MORPH PROF NO CHARGE Ordered. EDMS 18:17 Penicillin G Proc & Benzathine 1.2 mmu IM once ordered. fg 18:23 CT Chest Angio R/O PE Ordered. EDMS 19:04 ketorolac 30 mg IVP once ordered. fg 19:04 GI Cocktail - (Alum-Mag Hydroxide-Simeth 30 ml, Lidocaine 10 ml, Hyoscyamine 10 ml) PO fg once; Pre-mixed 50mL unit dose ordered. 19:05 -Arterial Blood Gas Ordered. EDMS 19:31 -Arterial Blood Gas Reviewed. mm11 19:31 CBC with Diff Reviewed. mm11 19:31 MED Profile Reviewed. mm11 19:31 PT/INR Reviewed. mm11 19:31 Urinalysis Reviewed. mm11 19:31 ACETAMINOPHEN LEVEL Reviewed. mm11 19:31 SALICYLATE LEVEL Reviewed. mm11 19:31 BRAIN NATIURETIC PEPTIDE Reviewed. mm11 19:31 -Arterial Blood Gas Reviewed. mm11 19:31 Lactic Acid (Horton tube on ice) Reviewed. mm11 19:31 Liver Profile Reviewed. mm11 19:31 PTT Reviewed. mm11 19:31 Type & Screen Reviewed. mm11 19:31 Urine Toxicology Reviewed. mm11 19:31 CARDIAC MARKER PANEL Reviewed. mm11 19:31 RBC MORPH PROF NO CHARGE Reviewed. mm11 19:31 Chest, 1 View Reviewed. mm11 19:31 CT Head Without Contrast Reviewed. mm11 19:31 CT Chest Angio R/O PE Reviewed. mm11 19:37 Financial registration complete. 19:47 Admission / Observation Status ordered. EDMS 19:47 REGULAR DIET ordered. EDMS 19:48 COMPLETE BLOOD COUNT Ordered. EDMS 19:48 RENAL PROFILE Ordered. EDMS 20:01 RESPIRATORY PANEL Ordered. EDMS 20:14 [facility] [place] Payment Agreement was scanned into [employer] and attached to record. gjb 21:51 Acetaminophen Tablet 650 mg PO once ordered. ko2 08/02 09:42 T-Sheet-- Draft Copy was scanned into [employer] and attached to record. jp5 08/03 09:42 PCR was scanned into [employer] and attached to record. lg Administered Medications: 08/01 16:42 Drug: naloxone 1 mg [naloxone 1 mg/mL injection syringe (1 mL)] Route: IVP; Site: left bcj antecubital; 16:50 Drug: naloxone 1 mg [naloxone 1 mg/mL injection syringe (1 mL)] Route: IVP; Site: left bcj antecubital; 17:13 Drug: NS 0.9% 1000 ml [sodium chloride 0.9 % intravenous solution] Route: IV; Rate: bcj bolus; Site: right antecubital; 17:14 Drug: Acetaminophen 650 mg [acetaminophen 325 mg tablet (2 tabs)] Route: PO; bcj 18:55 Drug: Penicillin G Proc & Benzathine 1.2 mmu [penicillin G benzathine and procaine ja5 1,200,000 unit/2 mL IM syringe (1.2 mmu)] Route: IM; Site: right gluteus; 19:27 Drug: ketorolac 30 mg [ketorolac 30 mg/mL (1 mL) injection solution (1 mL)] Route: IVP; ko2 Site: left hand; 19:27 Drug: GI Cocktail - (Alum-Mag Hydroxide-Simeth Suspension 225 mg-200 mg-25 mg/5 mL 30 ko2 ml, Lidocaine Liquid 2 % 10 ml, Hyoscyamine Liquid 10 ml) Route: PO; 21:45 Drug: Acetaminophen 650 mg [acetaminophen 325 mg tablet (2 tabs)] Route: PO; ko2 21:50 CANCELLED (Duplicate Order): Acetaminophen Tablet 650 mg PO once ko2 Signatures: Dispatcher [employer]Host EDMS Raiza Arora, RN RN rinku Armandolucero, Arlette, Reg Reg gb Lucas Morton, Reg Reg lg Grace Kaur, Net Finisher Unit ml3 Abdirahman Toscano, DO DO mm11 Oksana, Jazmine, PLUMBER CUB PLUMBER CUB le David, Dinora, DOG BEAUTICIAN DOG BEAUTICIAN ar3 Kiki Durbin RN RN ko2 Jazmin Coffey jp5 Paola Langley MD MD fg Beck, Gabriela gjb Anderson, Jessica, RN RN ja5 Johnson, Bruce RN bcj The chart was reviewed and I authenticate all verbal orders and agree with the evaluation and treatment provided.Corrections: (The following items were deleted from the chart) 16:53 16:48 ACETAMINOPHEN LEVEL+LAB ordered. EDMS EDMS 16:53 16:48 SALICYLATE LEVEL+LAB ordered. EDMS EDMS 17:19 17:13 B-Type NATIURETIC PEPTIDE+LAB ordered. EDMS EDMS 17:19 17:13 TROPONIN+LAB ordered. EDMS EDMS 17:19 17:13 CARDIAC MARKER PANEL+LAB ordered. EDMS EDMS 20:38 16:40 Set up for triple lumen central Iine placement ordered. fg ko2 21:50 21:49 Acetaminophen Tablet 650 mg PO once ordered. ko2 ko2 21:50 21:50 Acetaminophen Tablet 650 mg PO once ordered. ko2 ko2 Attachments: 20:14 [facility] Payment Agreement gjb 08/02 09:42 T-Sheet-- Draft Copy jp5 Chart Complete MTDD
--- NOTE | 2016-08-04 00:06 | EDDOCDS ---
Nurse's Notes [facility] Name: Vicky Gonzalez Age: 41 yrs Sex: Female : 1975 Arrival Date: 08/01/2016 Time: 16:32 Bed Admit Hold Private MD: NO PRIMARY PHYSICIAN, . Diagnosis: Acute respiratory failure with hypoxia;Streptococcal pharyngitis Presentation: 08/01 17:00 Presenting complaint: EMS states: Patient was found down at home with a respiratory ja5 rate of 8bpm, spo2 low 90s and was placed on a non-rebreather mask 15L O2, lung sounds were clear. Blood sugar 97, BP 93/67 in field. Patient was placed on stretcher and she became unresponsive and stopped breathing. EMS used BVM on patient and O2 sats dropped to 70% so they attempted to place an OPA, gag reflex present, etomodate was found to have infiltrated in LAC that was started. O2 sat increased to 90% prior to arrival to hospital. Method of arrival: Ambulance: direct to room. Care prior to arrival: assisted ventilation, Saline lock initiated. Glucose check. 97 Oxygen administered by EMS. Compressions began :NA: no chest compressions. 17:00 Acuity: SHIRA Level 1 ja5 20:09 Acuity: SHIRA Level 3 ko2 20:09 Adult Sepsis Screening: The patient does not have new or worsening altered mentation. ko2 Patient's respiratory rate is less than 22. Systolic blood pressure is greater than 100. Patient has a qSOFA score of 0- Negative Sepsis Screen. Suicide/Homicide risk assessment- the patient denies having any suicidal and/or homicidal ideations and does not present with any other emotional, behavioral or mental health complaints. 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 Transition of care: patient was not received from another setting of care. Triage Assessment: 17:38 Pain: Location: head and chest Pain currently is 10 out of 10 on a pain scale. HIV ja5 screening NA for this visit Offered previously. Neurological: Level of Consciousness is awake, alert, Oriented to person, place, time. Cardiovascular: Capillary refill < 3 seconds Heart tones S1 S2 present. Respiratory: Airway is patent Respiratory effort is even, gasping, shallow, Breath sounds are clear bilaterally. Derm: Skin is pink, warm & dry. Musculoskeletal: Circulation, motion, and sensation intact. ERP ANALYST: 16:40 LMP 07/18/2016 ja5 Historical: - Allergies: SULFA (SULFONAMIDES); - Home Meds: 1. none - PMHx: none; - PSHx: Tubal ligation; ; - Social history: Smoking status: Patient states was never smoker of tobacco. No barriers to communication noted, The patient speaks fluent Burmese. - Family history: Not pertinent. - : The pt / caregiver states he / she is not on anticoagulants. Home medication list is obtained from the patient. - Exposure Risk Screening:: None identified. Screenin:00 Abuse/DV Screen: Unable to Assess. Nutritional screening: Unable to Assess. ja5 17:44 Screening information is obtained from the patient. Fall risk: No risks identified. ja5 Assistance ADL's: requires no assistance with activities of daily living. Abuse/DV Screen: The patient / caregiver reports he/she is: not in a situation that causes fear, pain or injury. Advance Directives: Currently, there is a health care proxy, Zo Parks, mother. There is no active DNR order. There is no living will. There is no Power of Conference Services Manager. home support is adequate. Assessment: 17:00 CPR assessment: no CPR was needed. Cardiac rhythm is Sinus Rhythm. ja5 17:17 General: Appears distressed, Patient arrived to ED via EMS on stretcher, BVP in place ja5 ventilating patient who is unresponsive at this time. She was transferred to our stretcher and placed on monitors. 100% SPO2 on 15L O2 BVM, HR 103 sinus tach, patient is responding to noxious stimuli, rectal temperature 102.3 degrees F. Two large bore IVs were placed and patient began talking. BVM was removed and O2 sats remained 100% on RA with RR of 36. . 17:44 General: see triage assessment. ja5 18:57 General: Patient just returned from CT scan, laying with HOB 30 degrees in stretcher ja5 with RR 24, O2 sat 100% on 2L O2 NC. HR 121 SR on optical dispenser. Patient states that she is still having pain while breathing. Family is at bedside at this time.. 19:20 General: Appears distressed, Behavior is anxious. Pain: Location: neck and chest Pain ko2 currently is 9 out of 10 on a pain scale. Neurological: Level of Consciousness is awake, alert. Respiratory: Airway is patent. Derm: Skin is pale. 21:02 General: Appears in no apparent distress, Behavior is appropriate for age, cooperative. ko2 Neurological: Level of Consciousness is awake, alert. Respiratory: Airway is patent Respiratory effort is even, unlabored. Derm: Skin is normal. 22:10 General: Appears in no apparent distress, Behavior is appropriate for age, cooperative. ko2 Neurological: Level of Consciousness is awake, alert. Respiratory: Airway is patent Respiratory effort is even, unlabored. Derm: Skin is normal. Vital Signs: 16:36 BP 138 / 68 (auto/); ja5 16:36 Pulse 97 MON; Pulse Ox 100% ; ja5 16:40 BP 123 / 58; Pulse 89; Resp 36; Temp 102.3; Pulse Ox 100% on R/A; Pain 10/10; ja5 16:43 BP 123 / 58 (auto/); ja5 16:43 Pulse 114 MON; Pulse Ox 100% ; ja5 16:45 BP 117 / 55 (auto/); ja5 16:46 Pulse 108 MON; Pulse Ox 100% ; ja5 17:00 Temp 102.3(R); ld5 17:00 BP 108 / 57 (auto/); ja5 17:00 Pulse 100 MON; Pulse Ox 100% ; ja5 17:15 BP 118 / 55 (auto/); ja5 17:15 Pulse 100 MON; Pulse Ox 100% ; ja5 17:21 Pulse 98 MON; Pulse Ox 100% ; ja5 17:30 BP 115 / 61 (auto/); ja5 17:44 Pulse 97 MON; Pulse Ox 100% ; ja5 17:45 BP 109 / 58 (auto/); ja5 18:00 BP 112 / 69 (auto/); ja5 18:00 Pulse 100 MON; Pulse Ox 100% ; ja5 18:15 BP 111 / 70 (auto/); ja5 18:15 Pulse 103 MON; Pulse Ox 100% ; ja5 18:30 BP 108 / 59 (auto/); ja5 18:30 Pulse 105 MON; Pulse Ox 100% ; ja5 18:34 Pulse 102 MON; Pulse Ox 100% ; ja5 18:45 BP 108 / 62 (auto/); ja5 19:00 BP 107 / 64 (auto/); ko2 19:00 Pulse 108 MON; Pulse Ox 100% ; ko2 19:15 BP 102 / 58 (auto/); ko2 19:15 Pulse 95 MON; Pulse Ox 100% ; ko2 19:30 BP 103 / 58 (auto/); ko2 19:30 Pulse 94 MON; Pulse Ox 100% ; ko2 19:45 BP 106 / 60 (auto/); ko2 19:45 Pulse 98 MON; Pulse Ox 99% ; ko2 21:43 BP 103 / 62; Pulse 92; Resp 16; Temp 102.1; Pulse Ox 99% ; Pain 8/10; ko2 22:50 Temp 101(TE); ko2 Vitals: 17:38 Log In Time: August 01, 2016 at 16:30. ja5 17:40 Strep Screen is obtained and tested: Positive. [facility] ED Course: 16:32 Patient visited by Dinora Hernandez PCA. ar3 16:32 Patient moved to Waiting ar3 16:33 Muriel Ugarte,RN is Primary Nurse. ar3 16:33 NO PRIMARY PHYSICIAN, . is Private Physician. ar3 16:33 Patient moved to 2 ar3 16:39 Paola Langley MD is Attending Physician. fg 16:39 Patient visited by Paola Langley MD. fg 16:40 Inserted saline lock: 16 gauge in left antecubital area. Inserted saline lock: 16 gauge ja5 in right antecubital area. 16:50 Notified attending ED physician of Critical lab value. Dr Langley aware of abnormal ABG [facility] results. 16:51 Urine Toxicology Sent. ld5 16:52 Patient visited by Tari Ballard. nb2 16:52 Urinalysis Sent. ld5 16:52 Urine Culture Sent. ld5 16:52 EKG done. (by ED staff). Reviewed by Paola Langley MD. nb2 16:52 Lr cath inserted 16 Fr. Balloon inflated. To gravity drainage. Urine specimen ld5 collected. returned clear yellow urine. Patient tolerated well. 16:54 -Arterial Blood Gas Sent. cs15 17:04 SALICYLATE LEVEL Sent. bcj 17:05 ACETAMINOPHEN LEVEL Sent. bcj 17:21 Patient visited by Jose Manuel Plaza, CONNOR. bcj 17:31 Chest, 1 View Returned. EDMS 17:40 Patient visited by Jose Manuel Plaza, CONNOR. bcj 18:23 CT Head Without Contrast Returned. EDMS 19:04 Kiki Durbin,RN is Primary Nurse. ko2 19:04 Patient visited by Kiki Durbin RN. ko2 19:16 CT Chest Angio R/O PE Returned. EDMS 19:23 -Arterial Blood Gas Sent. jh6 19:25 Attending Physician role handed off by Paola Langley MD mm11 19:25 Abdirahman Toscano DO is Attending Physician. mm11 19:28 Primary Nurse role handed off by Muriel Ugarte,CONNOR juan diego 20:04 Patient visited by Luz Watson PCA. juan diego 20:09 The patient / caregiver is instructed regarding the plan of care and ED course. ko2 20:09 No procedures done that require assistance. ko2 20:14 [facility] [place] [facility] Payment Agreement was scanned into [employer] and attached to record. gjb 20:34 Rafat Smart DO is Hospitalizing Provider. mm11 20:43 Patient moved to Admit Hold ml3 21:24 Lr cath removed intact, balloon deflated. ko2 22:56 Patient visited by Kiki Durbin RN. ko2 08/02 09:42 T-Sheet-- Draft Copy was scanned into [employer] and attached to record. jp5 08/03 09:42 PCR was scanned into [employer] and attached to record. lg Administered Medications: 08/01 16:42 Drug: naloxone 1 mg [naloxone 1 mg/mL injection syringe (1 mL)] Route: IVP; Site: left bcj antecubital; 16:50 Drug: naloxone 1 mg [naloxone 1 mg/mL injection syringe (1 mL)] Route: IVP; Site: left bcj antecubital; 17:13 Drug: NS 0.9% 1000 ml [sodium chloride 0.9 % intravenous solution] Route: IV; Rate: bcj bolus; Site: right antecubital; 17:14 Drug: Acetaminophen 650 mg [acetaminophen 325 mg tablet (2 tabs)] Route: PO; bcj 18:55 Drug: Penicillin G Proc & Benzathine 1.2 mmu [penicillin G benzathine and procaine ja5 1,200,000 unit/2 mL IM syringe (1.2 mmu)] Route: IM; Site: right gluteus; 19:27 Drug: ketorolac 30 mg [ketorolac 30 mg/mL (1 mL) injection solution (1 mL)] Route: IVP; ko2 Site: left hand; 19:27 Drug: GI Cocktail - (Alum-Mag Hydroxide-Simeth Suspension 225 mg-200 mg-25 mg/5 mL 30 ko2 ml, Lidocaine Liquid 2 % 10 ml, Hyoscyamine Liquid 10 ml) Route: PO; 21:45 Drug: Acetaminophen 650 mg [acetaminophen 325 mg tablet (2 tabs)] Route: PO; ko2 21:50 CANCELLED (Duplicate Order): Acetaminophen Tablet 650 mg PO once ko2 Output: 21:30 Urine: 400.00ml (Lr); Total: 400.00ml. ko2 RT: 16:54 ABG's drawn from right radial artery allens test done and positive pressure held for 5 cs15 minutes no bleeding noted pressure bandage applied specimen sent pt. tolerated well. Oxygen is room air. Respiratory: Respiratory effort is labored, gasping, shallow, Respiratory pattern is Jaspreet alonzo tachypnea. 19:23 ABG's drawn from right radial artery pressure held for 5 minutes no bleeding noted jh6 pressure bandage applied specimen sent pt. tolerated well. Order Results: Lab Order: -Arterial Blood Gas; SPEC'M 08/01/16 16:43 Test: ABG pH (ARTERIAL); Value: 7.706; Range: 7.350-7.450; Abnormal: Above upper panic limits; Units: UNITS; Status: F Test: ABG PARTIAL PRESSURE CO2; Value: 13.9; Range: 35.0-45.0; Abnormal: Critical Low; Units: mmHg; Status: F Test: ABG PARTIAL PRESSURE O2; Value: 113.4; Range: 75.0-100.0; Abnormal: Above high normal; Units: mmHg; Status: F Test: ABG TOTAL CO2; Value: 17.5; Range: 22.0-29.0; Abnormal: Below low normal; Units: MEQ/L; Status: F Test: ABG HCO3; Value: 17.0; Range: 22.0-26.0; Abnormal: Below low normal; Units: MEQ/L; Status: F Test: ABG BASE EXCESS; Value: -2.0; Range: -2.0-2.0; Status: F Test: ABG STANDARD HCO3; Value: 22.8; Range: 22.0-26.0; Units: MEQ/L; Status: F Test: ABG O2 SATURATION; Value: 99.1; Range: 95.0-99.0; Abnormal: Above high normal; Units: %; Status: F Test: ABG DEVICE; Value: NASAL VERÓNICA; Status: F Lab Order: CBC with Diff; SPEC'M 08/01/16 16:38 Test: WHITE BLOOD COUNT; Value: 3.1; Range: 4.0-10.0; Abnormal: Below low normal; Units: K/mm3; Status: F Test: RED BLOOD COUNT; Value: 3.86; Range: 4.00-5.40; Abnormal: Below low normal; Units: M/mm3; Status: F Test: HEMOGLOBIN; Value: 7.1; Range: 12.0-16.0; Abnormal: Below low normal; Units: g/dl; Status: F Test: HEMATOCRIT; Value: 25.9; Range: 36.0-47.0; Abnormal: Below low normal; Units: %; Status: F Test: MEAN CORPUSCULAR VOLUME; Value: 67.1; Range: 80.0-96.0; Abnormal: Below low normal; Units: fl; Status: F Test: MEAN CORPUSCULAR HEMOGLOBIN; Value: 18.4; Range: 27.0-33.0; Abnormal: Below low normal; Units: pg; Status: F Test: MEAN CORPUSCULAR HGB CONC; Value: 27.4; Range: 32.0-36.5; Abnormal: Below low normal; Units: g/dl; Status: F Test: RED CELL DISTRIBUTION WIDTH; Value: 16.8; Range: 11.5-14.5; Abnormal: Above high normal; Units: %; Status: F Test: PLATELET COUNT, AUTOMATED; Value: 280; Range: 150-450; Units: k/mm3; Status: F Test: NEUTROPHILS %; Value: 72.1; Range: 36.0-66.0; Abnormal: Above high normal; Units: %; Status: F Test: LYMPH %; Value: 13.4; Range: 24.0-44.0; Abnormal: Below low normal; Units: %; Status: F Test: MONO %; Value: 9.1; Range: 0.0-5.0; Abnormal: Above high normal; Units: %; Status: F Test: EOS %; Value: 2.8; Range: 0.0-3.0; Units: %; Status: F Test: BASO %; Value: 1.5; Range: 0.0-1.0; Abnormal: Above high normal; Units: %; Status: F Test: LARGE UNSTAINED CELL %; Value: 1.2; Range: 0.0-4.0; Units: %; Status: F Test: NEUTROPHILS #; Value: 2.3; Range: 1.8-7.7; Units: K/mm3; Status: F Test: LYMPH #; Value: 0.5; Range: 1.5-4.5; Abnormal: Below low normal; Units: K/mm3; Status: F Test: MONO #; Value: 0.3; Range: 0.0-0.8; Units: K/mm3; Status: F Test: EOS #; Value: 0.1; Range: 0.0-0.50; Units: K/mm3; Status: F Test: BASO #; Value: 0.0; Range: 0.0-0.2; Units: K/mm3; Status: F Test: LARGE UNSTAINED CELL #; Value: 0.0; Range: 0.0-0.4; Units: K/mm3; Status: F Lab Order: Lactic Acid (Horton tube on ice); [facility] 08/01/16 16:38 Test: LACTIC ACID SEPSIS PROTOCOL; Value: 1.9; Range: 0.4-2.0; Units: MMOL/L; Status: F Lab Order: Liver Profile; [facility] 08/01/16 16:38 Test: AST/SGOT; Value: 19; Range: 15-37; Units: U/L; Status: F Test: ALT/SGPT; Value: 17; Range: 12-78; Units: U/L; Status: F Test: ALKALINE PHOSPHATASE; Value: 63; Range: 45-117; Units: U/L; Status: F Test: BILIRUBIN,TOTAL; Value: 0.5; Range: 0.2-1.0; Units: MG/DL; Status: F Test: BILIRUBIN,DIRECT; Value: 0.1; Range: 0.0-0.2; Units: MG/DL; Status: F Test: TOTAL PROTEIN; Value: 7.6; Range: 6.4-8.2; Units: GM/DL; Status: F Test: ALBUMIN; Value: 3.9; Range: 3.2-5.2; Units: GM/DL; Status: F Test: ALBUMIN/GLOBULIN RATIO; Value: 1.05; Range: 1.00-1.93; Status: F Lab Order: MED Profile; [facility] 08/01/16 16:38 Test: GLUCOSE, FASTING; Value: 98; Range: 70-105; Units: MG/DL; Status: F Test: BLOOD UREA NITROGEN; Value: 10; Range: 7-18; Units: MG/DL; Status: F Test: CREATININE FOR GFR; Value: 0.99; Range: 0.55-1.02; Units: MG/DL; Status: F Test: GLOMERULAR FILTRATION RATE; Value: > 60.0; Range: >58; Status: F Test: SODIUM LEVEL; Value: 141; Range: 136-145; Units: MEQ/L; Status: F Test: POTASSIUM SERUM; Value: 3.3; Range: 3.5-5.1; Abnormal: Below low normal; Units: MEQ/L; Status: F Test: CHLORIDE LEVEL; Value: 108; Range: 98-107; Abnormal: Above high normal; Units: MEQ/L; Status: F Test: CARBON DIOXIDE LEVEL; Value: 22; Range: 21-32; Units: MEQ/L; Status: F Test: ANION GAP; Value: 11; Range: 8-16; Units: MEQ/L; Status: F Test: CALCIUM LEVEL; Value: 8.4; Range: 8.5-10.1; Abnormal: Below low normal; Units: MG/DL; Status: F Test Note: ; Units are mL/min/1.73 m2 Chronic Kidney Disease Staging per NKF: Stage I & II GFR >=60 Normal to Mildly Decreased Stage III GFR 30-59 Moderately Decreased Stage IV GFR 15-29 Severely Decreased Stage V GFR <15 Very Little GFR Left ESRD GFR <15 on [employer] Lab Order: PT/INR; [facility] 08/01/16 16:38 Test: PROTHROMBIN TIME; Value: 11.9; Range: 12.3-14.5; Abnormal: Below low normal; Units: SECONDS; Status: F Test: INR; Value: 0.87; Status: F Test Note: ; THERAPUTIC HUMAN INR VALUES INDICATIONS NORMAL RANGES PROPHYLAXIS/TREATMENT OF: VENOUS THROMBOSIS 2.0-3.0 PULMONARY EMBOLISM 2.0-3.0 PREVENTION OF SYSTEMIC EMBOLISM FROM: TISSUE HEART VALVES 2.0-3.0 ACUTE MYOCARDIAL INFARCTION 2.0-3.0 VALVULAR HEART DISEASE 2.0-3.0 ATRIAL FIBRILLATION 2.0-3.0 MECHANICAL VALVES(HIGH RISK) 2.5-3.5 RECURRENT MYOCARDIAL INFARCTION 2.5-3.5 Lab Order: PTT; [facility] 08/01/16 16:38 Test: PARTIAL THROMBOPLASTIN TIME; Value: 31.9; Range: 26.6-37.1; Units: SECONDS; Status: F Lab Order: Type & Screen; [facility] 08/01/16 16:38 Test: BLOOD TYPE; Value: A POS; Status: F Test: AB SCREEN (INDIRECT KARLA)VIS; Value: NEGATIVE; Status: F Lab Order: Urinalysis; [facility] 08/01/16 16:49 Test: APPEARANCE, URINE; Value: CLEAR; Range: CLEAR; Status: F Test: COLOR, URINE; Value: STRAW; Range: YELLOW; Status: F Test: PH,URINE; Value: 7.0; Range: 5.0-9.0; Units: UNITS; Status: F Test: SPECIFIC GRAVITY URINE AUTO; Value: 1.012; Range: 1.002-1.035; Status: F Test: PROTEIN, URINE AUTO; Value: NEGATIVE; Range: NEGATIVE; Units: mg/dL; Status: F Test: GLUCOSE, URINE (UA) AUTO; Value: NEGATIVE; Range: NEGATIVE; Units: mg/dL; Status: F Test: KETONE, URINE AUTO; Value: 1+; Range: NEGATIVE; Abnormal: Above high normal; Units: mg/dL; Status: F Test: UROBILINOGEN, URINE AUTO; Value: 0.2; Range: 0.0-2.0; Units: mg/dL; Status: F Test: BILIRUBIN, URINE AUTO; Value: NEGATIVE; Range: NEGATIVE; Status: F Test: NITRITE, URINE AUTO; Value: NEGATIVE; Range: NEGATIVE; Status: F Test: LEUKOCYTE ESTERASE, URINE AUTO; Value: NEGATIVE; Range: NEGATIVE; Status: F Test: BLOOD, URINE BLOOD; Value: NEGATIVE; Range: NEGATIVE; Status: F Test: WBC, URINE AUTO; Value: 1; Range: 0-3; Units: /HPF; Status: F Test: RBC, URINE AUTO; Value: 0; Range: 0-3; Units: /HPF; Status: F Test: BACTERIA, URINE AUTO; Value: NEGATIVE; Range: NEGATIVE; Status: F Test: SQUAMOUS EPITHELIAL CELL UR AU; Value: 0; Range: 0-6; Units: /HPF; Status: F Test: HYALINE CAST, URINE AUTO; Value: 0; Range: 0-1; Units: /LPF; Status: F Lab Order: Urine Toxicology; SPEC'M 08/01/16 16:49 Test: AMPHETAMINES LEVEL URINE; Value: NEGATIVE; Range: NEGATIVE; Status: F Test: BARBITURATES URINE; Value: NEGATIVE; Range: NEGATIVE; Status: F Test: BENZODIAZEPINES URINE; Value: NEGATIVE; Range: NEGATIVE; Status: F Test: CANNABINOIDS URINE; Value: NEGATIVE; Range: NEGATIVE; Status: F Test: COCAINE METABOLITE URINE; Value: NEGATIVE; Range: NEGATIVE; Status: F Test: METHADONE URINE; Value: NEGATIVE; Range: NEGATIVE; Status: F Test: OPIATES URINE; Value: NEGATIVE; Range: NEGATIVE; Status: F Test: TRICYCLIC ANTIDEPRESS URINE; Value: NEGATIVE; Range: NEGATIVE; Status: F Test Note: ; ALL PRESUMPTIVE POSITIVE FINDINGS ARE UNCONFIRMED NORMAL VALUES THRESHOLD IN NG/ML AMPHETAMINES 1000 METHAMPHETAMINES 1000 BARBITURATES 300 BENZODIAZEPINES 300 CANNABINOIDS (THC) 50 COCAINE METABOLITE 300 METHADONE 300 OPIATES 300 PHENCYCLIDINE 25 TRICYCLIC ANTIDEPRESSANTS 1000 RESULTS ARE FOR MEDICAL PURPOSES ONLY. ALL URINE SPECIMENS WILL BE SAVED FOR 3 DAYS. IF CONFIRMATION OF A PRESUMPTIVE POSTIVE SCREEN RESULT IS DESIRED, CALL CHEMISTRY ([phone]) AND REQUEST URINE TO BE SENT TO REFERENCE LAB. FOR A LIST OF CLOSELY RELATED COMPOUNDS PLEASE CALL THE LAB. Lab Order: ACETAMINOPHEN LEVEL; SPEC'M 08/01/16 16:38 Test: ACETAMINOPHEN LEVEL; Value: < 2.0; Range: 10.0-30.0; Abnormal: Below low normal; Units: UG/ML; Status: F Lab Order: SALICYLATE LEVEL; SPEC'M 08/01/16 16:38 Test: SALICYLATE LEVEL; Value: < 1.7; Range: 5.0-30.0; Abnormal: Below low normal; Units: MG/DL; Status: F Lab Order: CARDIAC MARKER PANEL; [facility] 08/01/16 16:38 Test: CPK CREATINE PHOSPHOKINASE; Value: 149; Range: 26-192; Units: U/L; Status: F Test: CK-MB VALUE MASS; Value: 1.0; Range: 0.0-3.6; Units: NG/ML; Status: F Test: MB/CK RELATIVE INDEX; Value: 0.67; Range: < OR =4; Status: F Test: TROPONIN I; Value: < 0.02; Range: < 0.10; Units: NG/ML; Status: F Test Note: ; DIAGNOSIS CRITERIA MMB ng/ml Relative Index (RI) NON-AMI < or = 5 N/A [place] > 5 < or = 4 AMI > 5 > 4 Lab Order: BRAIN NATIURETIC PEPTIDE; [facility] 08/01/16 16:38 Test: BRAIN NATRIURETIC PEPTIDE; Value: 101; Range: <100; Abnormal: Above high normal; Units: PG/ML; Status: F Lab Order: RBC MORPH PROF NO CHARGE; [facility] 08/01/16 16:38 Test: HYPOCHROMASIA; Value: 2+; Status: F Test: ANISOCYTOSIS; Value: 1+; Status: F Test: MICROCYTOSIS; Value: 2+; Status: F Test: PLATELET ESTIMATE; Value: NORMAL; Range: NORMAL; Status: F Lab Order: -Arterial Blood Gas; [facility] 08/01/16 19:15 Test: ABG pH (ARTERIAL); Value: 7.582; Range: 7.350-7.450; Abnormal: Above high normal; Units: UNITS; Status: F Test: ABG PARTIAL PRESSURE CO2; Value: 18.7; Range: 35.0-45.0; Abnormal: Critical Low; Units: mmHg; Status: F Test: ABG PARTIAL PRESSURE O2; Value: 137.4; Range: 75.0-100.0; Abnormal: Above high normal; Units: mmHg; Status: F Test: ABG TOTAL CO2; Value: 17.8; Range: 22.0-29.0; Abnormal: Below low normal; Units: MEQ/L; Status: F Test: ABG HCO3; Value: 17.2; Range: 22.0-26.0; Abnormal: Below low normal; Units: MEQ/L; Status: F Test: ABG BASE EXCESS; Value: -4.0; Range: -2.0-2.0; Abnormal: Below low normal; Status: F Test: ABG STANDARD HCO3; Value: 21.1; Range: 22.0-26.0; Abnormal: Below low normal; Units: MEQ/L; Status: F Test: ABG O2 SATURATION; Value: 99.1; Range: 95.0-99.0; Abnormal: Above high normal; Units: %; Status: F Test: ABG DEVICE; Value: NASAL VERÓNICA; Status: F Radiology Order: Chest, 1 View Test: Chest, 1 View REASON FOR EXAMINATION: Chest Pain; Clinical: Chest pain .; ; Comparison: 04/29/2012 .; ; Findings:; The mediastinum and cardiac silhouette are stable and within normal limits for; portable technique. The lung singh are clear without acute consolidation,; effusion, or pneumothorax. Skeletal structures are intact.; ; Impression:; Normal portable chest x-ray; ; ; Signed by; Joe Jacome MD 08/01/2016 05:10 P; Radiology Order: CT Head Without Contrast Test: CT Head Without Contrast REASON FOR EXAMINATION: headache; Clinical: Acute headache .; ; Comparison: 10/24/2006 .; ; Findings:; The ventricles, sulci, and cisterns are normal in position and appearance.; Horton-white differentiation is maintained. No acute intracranial hemorrhage,; mass/mass effect, pathology or trauma/injury. No evidence for acute infarction.; No extra-axial fluid collection. Calvarium is intact. Paranasal sinuses and; mastoid air cells are clear.; ; Impression:; Normal noncontrast head CT.; No evidence for acute intracranial pathology or trauma/injury.; ; ; Signed by; Joe Jacome MD 08/01/2016 05:37 P; Radiology Order: CT Chest Angio R/O PE Test: CT Chest Angio R/O PE REASON FOR EXAMINATION: Chest Pain; Clinical: Acute chest pain.; ; Technique: Axial contrast enhanced images from the thoracic inlet to the upper; abdomen using 100 ml Isovue 370 intravenous contrast material with coronal and; sagittal re-formations.; ; Findings: Satisfactory enhancement of the pulmonary vasculature is achieved and; no filling defects are identified to suggest pulmonary embolus. Thoracic aorta; is normal caliber without aneurysm or dissection. Heart and pericardium are; normal. Lung singh demonstrate minimal right basilar atelectasis. Small; partially calcified subpleural nodule in the apex of the left lower lobe (image; 28) and in the periphery of the left lower lobe (image 46 - 47) are chronic and; faintly visible on chest CT dated 2011. No acute pulmonary parenchymal; consolidation, significant nodule or mass lesion appreciated. No pleural; effusion/reaction. No pneumothorax. No adenopathy.; ; Impression:; 1. No evidence for pulmonary embolus.; 2. Minimal right basilar atelectasis.; 3. Two small partially calcified nodules in the left lower lobe are faintly; visible on chest CT dated 2011 and represent chronic change.; ; ; Signed by; Joe Jcaome MD 08/01/2016 06:57 P; Outcome: 17:00 Code Team Members : Paola Langley MD. Rhythm strips are placed in the patient chart. ja5 Outcome Return of spontaneous breathing was achieved at 1635. 20:35 Decision to Hospitalize by Provider. mm11 22:56 Discharge Assessment: Patient awake, alert and oriented x 3. No cognitive and/or ko2 functional deficits noted. Patient verbalized understanding of disposition instructions. patient administered narcotics - no. The following High Risk Discharge criteria are identified: None. Admitted to Floor accompanied by tech, via wheelchair, with chart. Condition: stable. Property :Personal belongings accompany Pt. 22:56 CT Study completed. ko2 23:05 Patient left the ED. jun Signatures: Dispatcher [employer] EDMS Cherrie Patel, Jose Manuel Alexis RN, RN Raiza Barnes RN Lucas Ramos, Reg Reg lg Natasha, NickieHortencia, Car Changer Unit ml3 Abdirahman Toscano DO DO mm11 Dinora Hernandez, OB/GYN PHYSICIAN OB/GYN PHYSICIAN ar3 Betzaida Roman,RN RN ld5 Luz Watson, OB/GYN PHYSICIAN OB/GYN PHYSICIAN Hayden Shah jh6 Kiki DurbinRN RN juan2 Jazmin Coffey jp5 Paola Langley MD MD fg Shelton, Caleb,RT RT cs15 Jenny Santana Nicole nb2 Muriel Ugarte,RN RN ja5 Corrections: (The following items were deleted from the chart) 17:19 17:16 CARDIAC MARKER PANEL+LAB sent. [facility] EDNV 17:19 17:16 TROPONIN+LAB sent. [facility] EDMS 17: 17:16 B-Type NATIURETIC PEPTIDE+LAB sent. [facility] EDMS 17:27 17:00 Acuity: SHIRA Level 2 ja5 ja5 17:59 16:30 Inserted saline lock: 16 gauge in left antecubital area ja5 ja5 17:59 16:30 Inserted saline lock: 16 gauge in right antecubital area ja5 ja5 21:50 21:45 Acetaminophen Tablet 650 mg PO ko2 ko2 Chart Complete MTDD
[2016-08-04] MEDS: PERCOCET 5MG/325MG TAB PO PRN (01:28)
[2016-08-04] MEDS: ONDANSETRON 4MG/2ML VIAL (J2405) IV PRN (05:15)
[2016-08-04] MEDS: NS 1,000 ML IV SCH (05:16)
[2016-08-04] MEDS: IBUPROFEN 600 MG TAB PO PRN ×2 (05:16→16:42)
[2016-08-04 06:53] LABS: MEAN CORPUSCULAR HEMOGLOBIN 22.3 pg (27.0-33.0); MEAN CORPUSCULAR HGB CONC 29.6 g/dl (32.0-36.5); MEAN CORPUSCULAR VOLUME 75.2 fl (80.0-96.0); RED CELL DISTRIBUTION WIDTH 19.9 % (11.5-14.5); WHITE BLOOD COUNT 3.2 K/mm3 (4.0-10.0)
[2016-08-04 07:21] LABS: ALBUMIN 2.8 GM/DL (3.2-5.2); ANION GAP 10 MEQ/L (8-16); BLOOD UREA NITROGEN 9 MG/DL (7-18); CALCIUM LEVEL 7.4 MG/DL (8.5-10.1); CARBON DIOXIDE LEVEL 20 MEQ/L (21-32); CHLORIDE LEVEL 113 MEQ/L (98-107); CREATININE FOR GFR 0.71 MG/DL (0.55-1.02); GLOMERULAR FILTRATION RATE > 60.0 (>58); GLUCOSE, FASTING 73 MG/DL (70-105); PHOSPHORUS LEVEL 2.3 MG/DL (2.5-4.9); POTASSIUM SERUM 3.6 MEQ/L (3.5-5.1); SODIUM LEVEL 143 MEQ/L (136-145)
[2016-08-04 08:00] VITALS: BP 137/83
[2016-08-04] MEDS ORDERED: CHLORASEPTIC SPRAY MT PRN (08:30)
[2016-08-04] MEDS: OSELTAMIVIR PHOSPHATE 75 MG CAP (TAMIFLU) PO SCH ×2 (08:46→20:06)
[2016-08-04] MEDS: PENICILLIN V POTASSIUM 500 MG TAB PO SCH ×3 (08:46→20:06)
[2016-08-04] MEDS: FERROUS SULFATE 325MG TAB PO SCH ×2 (08:46→20:06)
--- NOTE | 2016-08-04 09:01 | IPNPDOC ---
Text Note Date of Service The patient was seen on 08/04/16. NOTE Subjective: Patient is a 41-year-old female with influenza and strep pharyngitis seen for hospitalist follow up. Patient says that she is feeling about the same today. She mentions that she is back on oxygen. She is complaining of a little bit of chest pressure today. She has also complaining of vomiting liquid, denies bloody vomitus. She denies having any fevers, abdominal pain. Patient was asked about bleeding. She denies any bleeding, bright red or tarry bowel movements. She says that her menses are "horrible.". Menses last 7-10 days and she has really bad bleeding with them. She states that she uses approximately 2 boxes of tampons per cycle. She has had bad menstrual cycles since she was in her 20s after having a tubal ligation. She says that her cycles are regular and occur monthly. Objective: Vital signs: Temperature 97.7, MAXIMUM TEMPERATURE 99.7, pulse 88, respiratory rate 18, blood pressure 137/83, pulse ox 97% on 2 L nasal cannula Gen.: Patient somewhat somnolent and uncomfortable but otherwise alert and oriented, verbal and able to answer questions appropriately. Patient does not appear to be in any acute distress Heart: Regular rate and rhythm, normal S1-S2. No murmurs, rubs, clicks or gallops Lungs: Clear to auscultation bilaterally. No wheezes, rales or rhonchi Abdomen: Active bowel sounds, soft, nontender, no masses to palpation Extremities: No swelling in either lower extremity Laboratory data: CBC: White blood cells 3.2, H&H 8.6/29.0, platelets 162 Chemistry: Sodium 143, potassium 3.6, chloride 113, Carbon dioxide 20, BUN 9, creatinine 0.71, glucose 73, calcium 7.4, phosphorus 2.3 ASO titer 27.0 Assessment: Patient is a 41-year-old female with strep pharyngitis and influenza. She is no longer febrile and is continuing to show slow improvement. Plan: #1: Acute influenza: Patient with influenza B. Currently on Tamiflu 75 mg by mouth twice a day, Tylenol 650 mill grams by mouth every 4 hours when necessary , ibuprofen 600 mg by mouth every 8 hours when necessary, Zofran 4 mg IV every 6 hours when necessary. Patient will continue with albuterol nebulizations as needed. #2: Strep pharyngitis: ASO titer negative, however emergency department records were reviewed and patient had positive strep in emergency department. Patient will continue on penicillin V 500 mg by mouth 3 times a day. Patient was not tolerating Cepacol lozenges, she will be changed to Chloraseptic spray #3: Hyperchloremia: Suspect secondary to normal saline administration. Patient with adequate oral intake, IV fluids will be discontinued. #4: Anemia: Due to patient's history suspect iron deficiency anemia. Patient's hemoglobin stable from yesterday. Patient will continue on ferrous sulfate 325 mg by mouth twice a day. Patient will be further evaluated with Estefany testing, liver profile, haptoglobin, LDH. Continue to monitor daily hemoglobin and hematocrit. #5: Constipation: Order placed for docusate 100 mg by mouth twice a day. #6: DVT prophylaxis: Order placed for teds and sequentials My preceptor for this patient encounter was physically present in the building during the encounter and was fully available. As needed, all aspects of the patient interview, examination, medical decision making process, and medical care plan development were reviewed and approved by the preceptor. Preceptor is aware and concurs with the plan as stated in the body of this note and will attest to such by his/her cosignature. VS,Fishbone, I+O VS, Fishbone, I+O Laboratory Tests 08/04/16 06:40 Anion Gap 10, Red Blood Count 3.85 L, Mean Corpuscular Volume 75.2 L, Mean Corpuscular Hemoglobin 22.3 L, Mean Corpuscular Hemoglobin Concent 29.6 L, Red Cell Distribution Width 19.9 H Vital Signs Date Time Temp Pulse Resp B/P Pulse Ox O2 Delivery O2 Flow Rate FiO2 08/04/16 08:00 97.7 88 18 137/83 97 Nasal Cannula 2.0 I&O- Last 24 Hours up to 6 AM 08/04/16 06:00 Intake Total 2520 ml Output Total 1000 ml Balance 1520 ml YINA AYALA DO Aug 04, 2016 09:01 JESS DUARTE MD Aug 09, 2016 14:47
[2016-08-04 13:13] LABS: ALBUMIN 2.9 GM/DL (3.2-5.2); ALBUMIN/GLOBULIN RATIO 1.04 (1.00-1.93); ALKALINE PHOSPHATASE 43 U/L (45-117); ALT/SGPT 14 U/L (12-78); AST/SGOT 16 U/L (15-37); BILIRUBIN,DIRECT < 0.1 MG/DL (0.0-0.2); BILIRUBIN,TOTAL 0.2 MG/DL (0.2-1.0); TOTAL PROTEIN 5.7 GM/DL (6.4-8.2)
[2016-08-04 16:00] VITALS: BP 109/70
[2016-08-04] MEDS: DOCUSATE SODIUM 100 MG CAP PO SCH ×2 (16:41→20:06)
[2016-08-04 20:00] VITALS: BP 128/74
[2016-08-05] VITALS: BP 116/76
[2016-08-05 07:05] LABS: MEAN CORPUSCULAR HEMOGLOBIN 22.1 pg (27.0-33.0); MEAN CORPUSCULAR VOLUME 73.7 fl (80.0-96.0); RED CELL DISTRIBUTION WIDTH 20.7 % (11.5-14.5); WHITE BLOOD COUNT 2.9 K/mm3 (4.0-10.0)
[2016-08-05 07:11] LABS: ALBUMIN 2.8 GM/DL (3.2-5.2); ANION GAP 10 MEQ/L (8-16); BLOOD UREA NITROGEN 6 MG/DL (7-18); CALCIUM LEVEL 7.7 MG/DL (8.5-10.1); CARBON DIOXIDE LEVEL 22 MEQ/L (21-32); CHLORIDE LEVEL 111 MEQ/L (98-107); CREATININE FOR GFR 0.61 MG/DL (0.55-1.02); GLOMERULAR FILTRATION RATE > 60.0 (>58); GLUCOSE, FASTING 80 MG/DL (70-105); POTASSIUM SERUM 3.1 MEQ/L (3.5-5.1); SODIUM LEVEL 143 MEQ/L (136-145)
[2016-08-05 07:26] LABS: PHOSPHORUS LEVEL 1.7 MG/DL (2.5-4.9)
[2016-08-05 08:30] VITALS: BP 111/71
[2016-08-05] MEDS: DOCUSATE SODIUM 100 MG CAP PO SCH ×2 (08:35→21:02)
[2016-08-05] MEDS: FERROUS SULFATE 325MG TAB PO SCH ×2 (08:35→21:02)
[2016-08-05] MEDS: PENICILLIN V POTASSIUM 500 MG TAB PO SCH ×3 (08:36→21:02)
[2016-08-05] MEDS: OSELTAMIVIR PHOSPHATE 75 MG CAP (TAMIFLU) PO SCH ×2 (08:36→21:02)
[2016-08-05] MEDS: IBUPROFEN 600 MG TAB PO PRN (08:37)
[2016-08-05] MEDS ORDERED: POTASSIUM PHOSPHATE INJ 30 MMOL in D5W 500 ML IV ONE (10:00)
--- NOTE | 2016-08-05 10:23 | IPNPDOC ---
Text Note Date of Service The patient was seen on 08/05/16. NOTE Subjective: Patient is a 41-year-old female with influenza and strep pharyngitis seen for hospitalist follow up. Patient says that she is feeling a little bit better today. She is complaining of pressure in her chest which radiates around to her back. She says that she can only sleep sitting up due to getting pressure in her chest and feeling like she cannot breathe when she lays flat. She says that she has not been eating much, she was having vomiting yesterday and has expressed a lack of desire for food. She has not yet had a bowel movement. Today though she says she has been improving. Her sore throat is improving, she denies any nausea or vomiting. She also denies any fevers, chills, sweats, abdominal pain. Objective: Vital signs: Temperature 97.5, MAXIMUM TEMPERATURE 98.3, pulse 81, respiratory rate 20, blood pressure 116/76, pulse ox 94% on room air Gen.: Patient awake, alert and oriented, verbal and able to answer questions appropriately. Patient does not appear to be in any acute distress Heart: Regular rate and rhythm, normal S1-S2. No murmurs, rubs, clicks or gallops Lungs: Clear to auscultation bilaterally. No wheezes, rales or rhonchi Abdomen: Active bowel sounds, soft, nontender, no masses to palpation Extremities: No swelling in either lower extremity Laboratory data: CBC: White blood cells 2.9, hemoglobin and hematocrit 8.6/28.6, platelets 153 Chemistry: Sodium 143, potassium 3.1, chloride 111, Carbon dioxide 22, BUN 6, creatinine 0.61, glucose 80, calcium 7.7, phosphorus 1.7 Liver profile: AST 16, ALT 14, alkaline phosphatase 43, total protein 5.7, albumin 2.9, total bilirubin 0.2 Lactate dehydrogenase 186 Haptoglobin pending Antibody screen negative Direct Estefany negative Assessment: Patient is a 41-year-old female with strep pharyngitis and influenza. She is no longer febrile and continues to show daily improvement.. She was complaining today of new chest pressure which will be further evaluated. Plan: #1: Acute influenza: Patient with influenza B. Currently on Tamiflu 75 mg by mouth twice a day, Tylenol 650 mg by mouth every 4 hours when necessary, ibuprofen 600 mg by mouth every 8 hours when necessary, Zofran 4 mg IV every 6 hours when necessary. Patient will continue with albuterol nebulizations as needed. #2: Strep pharyngitis: Order for Chloraseptic spray changed from every 2 hours when necessary to every 2 hours. Patient will continue on penicillin V 500 mg by mouth 3 times a day. #3: Chest pressure: Patient with complaint today of chest pressure which is made worse by laying flat. Patient will be further evaluated with chest x-ray ( chest x-ray read as trace right basilar atelectasis minimally increased from prior examination), cardiac injury profile, troponin, EKG, echocardiogram. Order placed for a one-time dose of 40 mg IV Lasix. #4: Hypophosphatemia: Phosphorus today of 1.7. Order placed for one-time dose of potassium phosphate injection 30 mmol, potassium phosphate tablet 250 mg by mouth 3 times a day. Order placed for repeat phosphorus level at 16:30 #5: Hypokalemia: Potassium today of 3.1. Order placed for one-time dose of potassium phosphate injection 30 mmol, potassium phosphate tablet 250 mg by mouth 3 times a day. Order placed for repeat potassium level at 16:30 #6: Hyperchloremia: Chloride down to 111 today from a 113 yesterday. Continue to monitor. #7: Iron deficiency anemia: Patient's workup, history of heavy menstrual cycles suggests iron deficiency anemia as cause of her anemia. Continue ferrous sulfate 325 mg by mouth twice a day #8: Constipation: Continue docusate 100 mg by mouth twice a day #9: DVT prophylaxis: Continue teds and sequentials My preceptor for this patient encounter was physically present in the building during the encounter and was fully available. As needed, all aspects of the patient interview, examination, medical decision making process, and medical care plan development were reviewed and approved by the preceptor. Preceptor is aware and concurs with the plan as stated in the body of this note and will attest to such by his/her cosignature. VS,Fishbone, I+O VS, Fishbone, I+O Laboratory Tests 08/05/16 06:30 Anion Gap 10, Red Blood Count 3.87 L, Mean Corpuscular Volume 73.7 L, Mean Corpuscular Hemoglobin 22.1 L, Mean Corpuscular Hemoglobin Concent 30.0 L, Red Cell Distribution Width 20.7 H Vital Signs Date Time Temp Pulse Resp B/P Pulse Ox O2 Delivery O2 Flow Rate FiO2 08/05/16 00:00 97.5 81 20 116/76 94 Room Air 08/04/16 09:00 2.0 I&O- Last 24 Hours up to 6 AM 08/05/16 06:00 Intake Total 2470 ml Output Total 2200 ml Balance 270 ml YINA AYALA DO Aug 05, 2016 10:23
[2016-08-05 12:00] VITALS: BP 113/73
--- NOTE | 2016-08-05 15:53 | REP ---
Clinical: Chest pain. Congestion. Comparison: 08/01/2016. Findings: Trace right basilar atelectasis is suggested which may be slightly increased when compared to prior examination. Remainder of the lung singh are clear. Mediastinum and cardiac silhouette normal. No effusion. No pneumothorax. Skeletal structures intact. Impression: Trace right basilar atelectasis minimally increased from prior examination. Signed by Joe Jacome MD 08/05/2016 03:45 P
[2016-08-05 16:00] VITALS: BP 117/91
[2016-08-05] MEDS ORDERED: FUROSEMIDE 40 MG/4 ML VIAL (J1940) IV ONE (16:15)
[2016-08-05] MEDS ORDERED: POTASSIUM CHLORIDE 10 MEQ SR TABLET PO ONE (16:15)
[2016-08-05] MEDS: K-PHOS NEUTRAL 250MG TABLET (SOD.PHOSPHATE/POT.PHOSPHATE) PO SCH ×2 (16:30→21:02)
[2016-08-05] MEDS ORDERED: FUROSEMIDE 40 MG TAB PO ONE (17:00)
[2016-08-05] MEDS: CHLORASEPTIC SPRAY MT SCH ×3 (18:30→22:30)
[2016-08-05 20:00] VITALS: BP 103/71
[2016-08-05 20:38] LABS: PHOSPHORUS LEVEL 2.7 MG/DL (2.5-4.9); POTASSIUM SERUM 3.4 MEQ/L (3.5-5.1)
[2016-08-06] MEDS: CHLORASEPTIC SPRAY MT SCH ×12 (00:30→22:30)
[2016-08-06 04:00] VITALS: BP 104/67
[2016-08-06 04:25] LABS: MEAN CORPUSCULAR HEMOGLOBIN 22.2 pg (27.0-33.0); MEAN CORPUSCULAR HGB CONC 30.5 g/dl (32.0-36.5); MEAN CORPUSCULAR VOLUME 72.6 fl (80.0-96.0); RED CELL DISTRIBUTION WIDTH 20.8 % (11.5-14.5); WHITE BLOOD COUNT 2.4 K/mm3 (4.0-10.0)
[2016-08-06 04:46] LABS: ALBUMIN 2.9 GM/DL (3.2-5.2); ANION GAP 9 MEQ/L (8-16); BLOOD UREA NITROGEN 6 MG/DL (7-18); CALCIUM LEVEL 7.8 MG/DL (8.5-10.1); CARBON DIOXIDE LEVEL 30 MEQ/L (21-32); CHLORIDE LEVEL 106 MEQ/L (98-107); CREATININE FOR GFR 0.77 MG/DL (0.55-1.02); GLOMERULAR FILTRATION RATE > 60.0 (>58); GLUCOSE, FASTING 101 MG/DL (70-105); PHOSPHORUS LEVEL 3.2 MG/DL (2.5-4.9); SODIUM LEVEL 145 MEQ/L (136-145)
[2016-08-06] MEDS ORDERED: POTASSIUM CHLORIDE 10 MEQ SR TABLET PO ONE ×2 (07:45→10:00)
[2016-08-06] MEDS: OSELTAMIVIR PHOSPHATE 75 MG CAP (TAMIFLU) PO SCH ×2 (09:09→21:04)
[2016-08-06] MEDS: FERROUS SULFATE 325MG TAB PO SCH ×2 (09:09→21:04)
[2016-08-06] MEDS: PENICILLIN V POTASSIUM 500 MG TAB PO SCH ×3 (09:09→21:04)
[2016-08-06] MEDS: DOCUSATE SODIUM 100 MG CAP PO SCH ×2 (09:09→21:04)
[2016-08-06] MEDS: K-PHOS NEUTRAL 250MG TABLET (SOD.PHOSPHATE/POT.PHOSPHATE) PO SCH ×3 (09:09→21:04)
[2016-08-06 09:14] VITALS: BP 113/80
[2016-08-06] MEDS ORDERED: ONDANSETRON 4 MG ORAL DISINTEGRATING TAB (S0181) SL PRN (12:45)
--- NOTE | 2016-08-06 14:39 | ECGEPIP ---
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 Decreased heart rate compared with 08/01/2016. Electronically Signed On 08-06-2016 14:39:48 EST by Oseas Carcamo
--- NOTE | 2016-08-06 15:22 | IPNPDOC ---
Text Note Date of Service The patient was seen on 08/06/16. NOTE Subjective: Patient is a 41-year-old female with influenza, strep pharyngitis seen for hospitalist follow up. Patient reports that she is feeling better and she is asking about being discharged. She reports that she has been eating a little bit. She denies any fevers, chills, sweats, chest pain/pressure, shortness of breath or difficulty breathing, abdominal pain, nausea, vomiting. She reports chest pressure she had yesterday is gone. Objective: Vital signs: Temperature 97.8, pulse 79, respiratory rate 18, blood pressure 113 /80, pulse ox 97% on room air Gen.: Patient awake, alert and oriented, verbal and able to answer questions appropriately. Patient does not appear to be in any acute distress Heart: Regular rate and rhythm, normal S1-S2. No murmurs, rubs, clicks or gallops Lungs: Clear to auscultation bilaterally. No wheezes, rales or rhonchi Abdomen: Active bowel sounds, soft, nontender, no masses to palpation Extremities: No swelling in either lower extremity Laboratory data: CBC: White blood cells 2.4, hemoglobin and hematocrit 9.3/30.5, platelets 136 Chemistry: Sodium 145, potassium 4.0, chloride 106, carbon dioxide 30, BUN 6, creatinine 0.77, glucose 101, calcium 7.8, phosphorus 3.2 Assessment: Patient is a 41-year-old female admitted for influenza, strep pharyngitis. She is clinically improving and doing well today. Plan: #1: Acute influenza: Patient with influenza B. Currently on Tamiflu 75 mg by mouth twice a day, Tylenol 650 mg by mouth every 4 hours when necessary, ibuprofen 600 mg by mouth every 8 hours when necessary, Zofran 4 mg sublingual every 6 hours when necessary. Patient will continue with albuterol nebulizations as needed #2: Strep pharyngitis: Patient will continue on penicillin V 500 mg by mouth 3 times a day #3: Pancytopenia: Likely secondary to viral suppression. Case was discussed with hematology, patient will be scheduled for outpatient follow-up with hematology for next week. Hematology also recommending outpatient follow-up for dysmenorrhea with [facility] #4: Dysmenorrhea: Patient does not currently have [facility]. I discussed patient establishing with [facility] with patient. She was agreeable to appointment with them. She will be scheduled for outpatient appointment prior to discharge #5: Iron deficiency anemia: Suspect secondary to dysmenorrhea, continue ferrous sulfate 325 mg by mouth twice a day #6: Chest pressure: Resolved. Patient had echocardiogram done yesterday. Follow- up results from echo when available. #7: Hypophosphatemia: Phosphorus today of 3.2, continue potassium phosphate 250 mg by mouth 3 times a day #8: Hypokalemia: Potassium of 3.0 today order placed for 80 meqs of oral potassium #9: Hyperchloremia: Resolved, continue to monitor daily BMP #10: Constipation: Continue docusate 100 mg by mouth twice a day #11: DVT prophylaxis: Continue teds and sequentials My preceptor for this patient encounter was physically present in the building during the encounter and was fully available. As needed, all aspects of the patient interview, examination, medical decision making process, and medical care plan development were reviewed and approved by the preceptor. Preceptor is aware and concurs with the plan as stated in the body of this note and will attest to such by his/her cosignature VS,Jes, I+O VS, Jes, I+O Laboratory Tests 08/05/16 19:53 Phosphorus Level 2.7 #, Total Creatine Kinase 91 08/06/16 04:14 Anion Gap 9, Red Blood Count 4.20, Mean Corpuscular Volume 72.6 L, Mean Corpuscular Hemoglobin 22.2 L, Mean Corpuscular Hemoglobin Concent 30.5 L, Red Cell Distribution Width 20.8 H Vital Signs Date Time Temp Pulse Resp B/P Pulse Ox O2 Delivery O2 Flow Rate FiO2 08/06/16 12:09 Room Air 08/06/16 09:14 97.8 79 18 113/80 97 08/04/16 09:00 2.0 I&O- Last 24 Hours up to 6 AM 08/06/16 06:00 Intake Total 340 ml Output Total 2600 ml Balance -2260 ml YINA AYALA DO Aug 06, 2016 15:22
[2016-08-06 15:59] VITALS: BP 106/67
[2016-08-06 20:10] VITALS: BP 112/76
[2016-08-07] VITALS: BP 110/72
[2016-08-07] MEDS: CHLORASEPTIC SPRAY MT SCH ×5 (00:30→08:41)
[2016-08-07 07:54] LABS: ANION GAP 10 MEQ/L (8-16); BLOOD UREA NITROGEN 7 MG/DL (7-18); CARBON DIOXIDE LEVEL 28 MEQ/L (21-32); CHLORIDE LEVEL 107 MEQ/L (98-107); CREATININE FOR GFR 0.73 MG/DL (0.55-1.02); GLOMERULAR FILTRATION RATE > 60.0 (>58); GLUCOSE, FASTING 92 MG/DL (70-105); PHOSPHORUS LEVEL 3.4 MG/DL (2.5-4.9); POTASSIUM SERUM 3.5 MEQ/L (3.5-5.1); SODIUM LEVEL 145 MEQ/L (136-145)
[2016-08-07 08:00] VITALS: BP 103/67
[2016-08-07 08:08] LABS: MEAN CORPUSCULAR HGB CONC 30.5 g/dl (32.0-36.5); MEAN CORPUSCULAR VOLUME 72.3 fl (80.0-96.0); RED CELL DISTRIBUTION WIDTH 20.7 % (11.5-14.5); WHITE BLOOD COUNT 2.6 K/mm3 (4.0-10.0)
[2016-08-07] MEDS: FERROUS SULFATE 325MG TAB PO SCH (08:57)
[2016-08-07] MEDS: PENICILLIN V POTASSIUM 500 MG TAB PO SCH (08:57)
[2016-08-07] MEDS: DOCUSATE SODIUM 100 MG CAP PO SCH (08:57)
[2016-08-07] MEDS ORDERED: OSEL75CA2 PO (09:05)
[2016-08-07] MEDS ORDERED: FERR325T PO (09:05)
[2016-08-07] MEDS ORDERED: PENI50TA PO (09:05)
--- NOTE | 2016-08-07 09:44 | DS.PDOC ---
Discharge Summary General Date of Admission Aug 01, 2016 at 19:37 Date of Discharge 08/07/16 Discharge Summary Consults: None Discharge diagnosis: Influenza B Secondary diagnosis: Strep pharyngitis, pancytopenia, dysmenorrhea, iron deficiency anemia, chest pressure, hypophosphatemia, hypokalemia, hyperchloremia, constipation Hospital course: Patient was admitted on 08/01/16 with chest discomfort, shortness of breath. Patient was found to have strep pharyngitis, influenza. Patient was started on oseltamivir and oral penicillin. Patient was found to have severe anemia while hospitalized, was transfused 2 units of packed red blood cells. Anemia is believed to be due to severe menstrual cycles. Patient was also started on supplemental iron. While hospitalized patient developed hyperchloremia secondary to normal saline administration which corrected with discontinuation of IV fluids, patient also developed hypophosphatemia and hypokalemia which responded to oral replacement. On 08/05/16 patient was complaining of chest pressure so an echocardiogram was ordered. Results from echocardiogram is still pending. On 08/06/16 patient developed pancytopenia and case was discussed with hematology who agreed to see patient as outpatient, hematology also recommended patient establish care with [facility] due to severe anemia. Patient's chest pressure resolved on it 08/06 and patient remained asymptomatic through the remainder of her hospitalization.Pt was given appointment dates and referrals to PCP, [facility] and Hem/onc prior to d/c. Progress note on date of discharge: Subjective: Patient is a 41-year-old female with acute influenza, strep pharyngitis seen for hospitalist follow up. Patient's only complaint today is of continued cough. She denies any fevers, chills, sweats, chest pain/pressure, shortness of breath, difficulty breathing, abdominal pain, nausea, vomiting, diarrhea, constipation. She says that she is ready to go home today. Objective: Vitals: Temperature 96.7, pulse 59, respiratory rate 16, blood pressure 103/67, pulse ox 98% on room air Gen.: Patient awake, alert and oriented, verbal and able to answer questions appropriately. He does not appear to be in any acute distress Heart: Regular rate and rhythm, normal S1-S2. No murmurs, rubs, clicks or gallops Lungs: Clear to auscultation bilaterally. No wheezes, rales or rhonchi Abdomen: Active bowel sounds, soft, nontender, no masses to palpation Labs: CBC: White blood cells 2.6, hemoglobin and hematocrit 9.0/29.6, platelets 134 History: Sodium 145, potassium 3.5, chloride 107, Carbon dioxide 28, BUN 7, creatinine 0.73, glucose 92, calcium 8.0, phosphorus 3.4 Assessment: Patient is a 41-year-old female who was admitted for acute influenza B, strep pharyngitis. She has improved, is currently doing well. She is safe and ready to be discharged home. Disposition: Discharge patient to home Follow-up: Patient to establish at [facility] for primary care on 08/19/16 at 11 :[address] Mcconnell from hematology on 08/12/16 at 2 PM To establish care with Dr. Chew from [facility] on 08/11/16 at 1 PM Activity: As tolerated Diet: As tolerated Medications on discharge: Ferrous sulfate 325 mg by mouth twice a day Oseltamivir 75 mg by mouth twice a day 2 days Penicillin V 500 mg by mouth 3 times a day 4 days Cc: Dr. Mcconnell, Dr. Chew, [facility] Time spent on discharge: Greater than 30 minutes Medications Scheduled Ferrous Sulfate (Ferrous Sulfate) 325 Mg Tab 325 MG PO BID Oseltamivir Phosphate (Oseltamivir Phosphate) 75 Mg Cap 75 MG PO BID Penicillin V Potassium (Penicillin V Potassium) 500 Mg Tab 500 MG PO TID Allergies Coded Allergies: Sulfa Drugs (Verified Allergy, Severe, 08/01/16) Anaphylaxis Sulfa Drugs Cross Reactors (Verified Allergy, Severe, 09/14/12) YINA AYALA DO Aug 07, 2016 09:44 JESS DUARTE MD Aug 09, 2016 15:00
--- NOTE | 2016-08-08 07:15 | ECHO ---
DATE OF PROCEDURE: 08/05/2016 REFERRING PHYSICIAN: Mahad Ramon MD PATIENT LOCATION: Room 4112 REASON FOR ECHOCARDIOGRAM: Chest pain. 2D MEASUREMENTS: IVS: 0.86 cm LV: 4.5 cm LVPW: 0.86 cm LA: 3.1 cm Aorta: 3.1 cm IVC: 2.2 cm DOPPLER MEASUREMENTS: Peak velocity across the aortic valve: 1.4 m/s Peak velocity across the LVOT: 0.99 m/s Mitral E: 0.90, Mitral A: 0.57, with a ratio of 1.6 Tricuspid valve velocity: 1.8 m/s 2D COMMENTS: 1. Normal left ventricular size, wall thickness and normal global left ventricular systolic function. The estimated global left ventricular systolic ejection fraction is 60 to 65%. 2. Normal left atrium. Normal right atrium and right ventricle. 3. The atrial septum appeared to be normal without evidence of defect or shunt. 4. Normal aortic root. 5. Trace pericardial effusion noted, no evidence of cardiac tamponade. 6. Normal aortic valve. Mildly calcified mitral annulus with normal anterior mitral valve leaflet motion. Normal tricuspid valve and pulmonic valve. The proximal pulmonary artery branches were not well visualized. 7. The inferior vena cava was mildly enlarged, central venous pressure might be elevated or may be artifactual. DOPPLER: It detects trace tricuspid regurgitation and mild mitral regurgitation. The calculated pulmonary artery systolic pressure was normal. Assessment of the left ventricular diastolic function appeared to be normal. IMPRESSION: 1. Normal global left ventricular systolic and diastolic function. 2. Mitral annulus calcification with mild mitral regurgitation. 3. Trace tricuspid regurgitation with a normal calculated pulmonary artery systolic pressure. 4. Isolated mildly dilated inferior vena cava/IVC; may be artifactual. 5. Trace pericardial effusion noted, no evidence of cardiac tamponade.
== END 2016-08-07 10:00 | disposition home or self-care (01) | DRG 113 ==
LOC: M ED 16:32 → M ED INP 19:37 → OBSVTOIN 19:37 → M PED 23:05
PROVIDERS: ADMIT Hospitalist; ATTEND Internal Medicine
PROC: 30253N1 (ICD-10-PCS; principal; 2016-08-02)
DX: J11.1 Influenza due to unidentified influenza virus with other respiratory manifestations (principal); E87.3 Alkalosis; D61.818 Other pancytopenia; E87.8 Other disorders of electrolyte and fluid balance, not elsewhere classified; E83.39 Other disorders of phosphorus metabolism; E87.6 Hypokalemia; R07.81 Pleurodynia; D50.9 Iron deficiency anemia, unspecified; K59.00 Constipation, unspecified; N94.6 Dysmenorrhea, unspecified; Z88.2 Allergy status to sulfonamides

== ENCOUNTER → 2016-08-13 | Outpatient (CLI) | payer OTHER ==
[~2016-08-13] MED LIST changes: +FERR325T PO; +OSEL75CA2 PO; +PENI50TA PO
--- NOTE | 2016-08-13 11:23 | REP ---
PELVIC SONOGRAPHY: HISTORY: Heavy bleeding. Intramural leiomyoma of the uterus. Comparison CT study of the abdomen is from May 03, 2012. Comparison sonography April 29, 2012. SONOGRAPHIC FINDINGS: The uterus is enlarged measuring 11.4 x 6.6 x 8.6 cm. Endometrial echo is 0.6 cm thick. There are is a heterogeneous texture to the uterine myometrium. Two fibroids are seen. An intramural fibroid is noted on the left measuring 4.6 x 4.3 x 3.9 cm. There is a submucosal fibroid presenting as a polypoid lesion in the endometrium measuring 2.9 x 2.7 x 2.3 cm. Multiple nabothian cysts are seen. Visualized bladder yost are smooth. No free fluid is seen. Normal ovaries are seen bilaterally. Right ovary dimensions are 3.5 x 2.0 x 2.4 cm. Left ovary measures 2.9 x 2.7 x 2.3 cm. IMPRESSION: Findings consistent with enlarged fibroid uterus including a submucosal 2.9 cm fibroid projecting into the endometrium. There is also a 4.6 cm intramural fibroid to the left of midline. Signed by Reg Middleton MD 08/13/2016 01:30 P
== END ==
LOC: M RAD 09:31
PROVIDERS: ATTEND Specialist
DX: D25.1 Intramural leiomyoma of uterus (principal)

== ENCOUNTER → 2016-08-25 | Outpatient (CLI) | payer OTHER ==
[2016-08-25 13:09] LABS: MEAN CORPUSCULAR HEMOGLOBIN 22.8 pg (27.0-33.0); MEAN CORPUSCULAR HGB CONC 29.1 g/dl (32.0-36.5); MEAN CORPUSCULAR VOLUME 78.2 fl (80.0-96.0); RED CELL DISTRIBUTION WIDTH 22.4 % (11.5-14.5); WHITE BLOOD COUNT 4.6 K/mm3 (4.0-10.0)
== END ==
LOC: M SMT 08:27
PROVIDERS: ATTEND Specialist
DX: N93.8 Other specified abnormal uterine and vaginal bleeding (principal)

== ENCOUNTER 2016-09-28 05:40 | Day surgery (SDC) | payer MEDICAID, OTHER ==
[~2016-09-28] VITALS: Ht 152.4 cm; Wt 55.3 kg
[2016-09-28] VITALS (7 sets, daily range): BP systolic 98–111; BP diastolic 56–69
[2016-09-28] MEDS ORDERED: LR 1,000 ML IV SCH ×3 (05:45→10:45)
[2016-09-28] MEDS ORDERED: ceFAZolin SOD 1 GM in D5W MINI-BAG PLUS 50 ML IV ONE (05:45)
[2016-09-28 06:14] LABS: MEAN CORPUSCULAR HEMOGLOBIN 22.4 pg (27.0-33.0); MEAN CORPUSCULAR HGB CONC 29.4 g/dl (32.0-36.5); MEAN CORPUSCULAR VOLUME 76.1 fl (80.0-96.0); RED CELL DISTRIBUTION WIDTH 18.2 % (11.5-14.5); WHITE BLOOD COUNT 5.7 K/mm3 (4.0-10.0)
[2016-09-28] MEDS ORDERED: PROV10TA PO (06:39)
[2016-09-28] MEDS ORDERED: BUPIVACAINE HCL 0.25% 30 ML VIAL As Ordered ONE (07:12)
[2016-09-28] MEDS ORDERED: METHYLENE BLUE 0.5% (5MG/ML) 10 ML AMP (PROVAYBLUE)(Q9968 PER 1MG) As Ordered ONE (07:12)
[2016-09-28] MEDS ORDERED: SCOPOLAMINE 1.5 MG TRANSDERMAL As Ordered ONE (07:25)
[2016-09-28] MEDS ORDERED: SCOPOLAMINE 1.5 MG TRANSDERMAL TOP ONE (07:30)
[2016-09-28] MEDS ORDERED: GLYCOPYRROLATE INJ 0.2 MG/ML 2 ML VIAL As Ordered ONE ×2 (08:22→12:02)
[2016-09-28] MEDS ORDERED: HYDROmorphone HCL 2 MG/ML 1ML VIAL (J1170) As Ordered ONE (08:22)
[2016-09-28] MEDS ORDERED: fentaNYL 250 MCG/5 ML INJECTION (J3010) As Ordered ONE (08:22)
[2016-09-28] MEDS ORDERED: PROPOFOL 200 MG/20 ML VIAL As Ordered ONE (08:22)
[2016-09-28] MEDS ORDERED: ROCURONIUM BROMIDE 50 MG/5 ML VIAL As Ordered ONE ×2 (08:22→09:07)
[2016-09-28] MEDS ORDERED: NEOSTIGMINE 1MG/ML 5 ML SYRINGE (J2710) As Ordered ONE (08:22)
[2016-09-28] MEDS ORDERED: KETOROLAC 60 MG/2 ML VIAL (J1885) As Ordered ONE (08:22)
[2016-09-28] MEDS ORDERED: dexameTHASONE 4 MG/ML 1ML VIAL (J1100) As Ordered ONE (08:22)
[2016-09-28] MEDS ORDERED: ONDANSETRON 4MG/2ML VIAL (J2405) As Ordered ONE (08:22)
[2016-09-28] MEDS ORDERED: LIDOCAINE 2% INJ 100 MG/5 ML SDV (FOR ANES.) As Ordered ONE (08:22)
[2016-09-28] MEDS ORDERED: MIDAZOLAM INJ 2 MG/2 ML VIAL (J2250) As Ordered ONE (08:22)
[2016-09-28] MEDS ORDERED: MEPERIDINE INJ 25 MG/ML VIAL (J2175) IV PRN (10:45)
[2016-09-28] MEDS ORDERED: PERCOCET 5MG/325MG TAB PO PRN ×3 (10:45)
[2016-09-28] MEDS ORDERED: METOCLOPRAMIDE INJ 10MG/2ML VIAL (J2765) IV PRN (10:45)
[2016-09-28] MEDS ORDERED: ONDANSETRON 4MG/2ML VIAL (J2405) IV PRN ×2 (10:45)
[2016-09-28] MEDS ORDERED: MORPHINE 4 MG/ML 1ML SYRINGE IV PRN (10:45)
[2016-09-28] MEDS ORDERED: fentaNYL 100 MCG/2 ML INJECTION (J3010) IV PRN (10:45)
[2016-09-28] MEDS: DOCUSATE SODIUM 100 MG CAP PO SCH ×2 (11:49→20:18)
[2016-09-28] MEDS: LR 1,000 ML IV SCH ×2 (11:49→18:34)
[2016-09-28] MEDS ORDERED: PERC5TAB6 PO (14:09)
--- NOTE | 2016-09-28 17:47 | RO ---
DATE OF PROCEDURE: 09/28/2016 PREPROCEDURE DIAGNOSIS: Menorrhagia, fibroid uterus. POSTPROCEDURE DIAGNOSIS: Menorrhagia, fibroid uterus. PROCEDURE: Robotic-assisted laparoscopic hysterectomy, cystoscopy. SURGEON: Dr. Mikel Chew TRANSIT PROOF MACHINE OPERATOR: ANESTHESIA: General endotracheal. ESTIMATED BLOOD LOSS: 200 mL. FLUID: 1500 mL of lactated Ringer's, one unit of packed red blood cells. URINE OUTPUT: 200 mL. FINDINGS: Enlarged irregular uterus, multiple fibroids, normal appearing fallopian tubes and ovaries. Normal upper abdomen, including liver and stomach. DESCRIPTION OF PROCEDURE: The patient was taken to the operating room where general endotracheal anesthesia was induced. She was prepped and draped in a sterile fashion in the dorsal lithotomy position, Lr catheter was placed and the VCare uterine manipulator was placed. Periumbilical incision was made with a scalpel. A Veress needle was placed through this incision while tenting up on the skin of the abdomen. Intraabdominal location of the Veress needle was assessed by use of a saline-filled syringe and pneumoperitoneum was created. Veress needle was removed. An 11 mm trocar was placed through this incision while tenting up on the skin of the abdomen. A 5 mm scope with camera was used to survey pelvic structures. Three 8 mm suprapubic ports were placed under direct visualization without difficulty. The patient was placed in steep Trendelenburg position. The da Renny surgical robot was docked in the ports. PK dissector and monopolar Endo Zahida were used to coagulate and incise utero-ovarian ligaments, fallopian tubes and round ligament complexes. The anterior and posterior leaves of the broad ligament were . Bladder flap was created. The uterine vessels were coagulated and incised. Colpotomy was created at the level of the VCare cup and the upper vagina was circumscribed 360 degrees. A specimen containing the uterus and cervix was removed through the vagina. Vaginal cuff was closed with #1 V-Loc suture in a running fashion. Pelvis was irrigated. The patient received methylene blue dye intravenously. Cystoscopy was performed using a 70-degree cystoscope. There was no evidence of injury to the bladder. Bilateral ureteral jets were identified. Cystoscope was removed and the Lr catheter was replaced. All instruments were removed from the abdomen. Skin was closed with #4-0 Monocryl subcuticular sutures. Sponge, instrument and needle counts were correct.
[2016-09-28] MEDS: KETOROLAC 30 MG/ML VIAL (J1885) IV PRN (20:18)
[2016-09-29] MEDS: LR 1,000 ML IV SCH ×2 (02:45→10:30)
[2016-09-29] MEDS: KETOROLAC 30 MG/ML VIAL (J1885) IV PRN (05:44)
[2016-09-29 06:00] VITALS: BP 93/58
[2016-09-29 07:13] LABS: MEAN CORPUSCULAR HGB CONC 30.3 g/dl (32.0-36.5); MEAN CORPUSCULAR VOLUME 76.1 fl (80.0-96.0); RED CELL DISTRIBUTION WIDTH 18.4 % (11.5-14.5); WHITE BLOOD COUNT 6.7 K/mm3 (4.0-10.0)
[2016-09-29] MEDS ORDERED: OXYC1TAB23 PO (08:06)
[2016-09-29] MEDS: DOCUSATE SODIUM 100 MG CAP PO SCH (09:00)
[2016-09-29] MEDS ORDERED: IBUP600T26 PO (13:05)
== END 2016-09-29 13:50 | disposition home or self-care (01) ==
LOC: M SDC 05:40 → M MS5PR 11:05 → M SDC 09-29 13:50
PROVIDERS: ATTEND Specialist
DX: D25.0 Submucous leiomyoma of uterus (principal); D64.9 Anemia, unspecified; Z79.899 Other long term (current) drug therapy; Z88.2 Allergy status to sulfonamides
CPT/HCPCS: 36415; 36430; 58570; 85027; 86850; 86900; 86901; 86920; 88309; 96374; 96375; 96376; J0690; J1100; J1170; J1885; J2250; J2405; J2710; J3010; P9016; Q9968

== ENCOUNTER → 2017-01-07 | Outpatient (CLI) | payer MEDICAID ==
[~2017-01-07] MED LIST changes: +FERR1TAB8 PO; -FERR325T PO; +IBUP-1022 PO; +OXYC1TAB23 PO; +PENI500T PO; -PENI50TA PO; +PERC5TAB12 PO; +PROV10TA PO
--- NOTE | 2017-01-07 09:22 | REP ---
Abdominal right upper quadrant ultrasound: There is no cholelithiasis, gallbladder wall thickening or pericholecystic fluid. There is no intrahepatic or extrahepatic biliary duct dilatation, the common duct measures 4.2 mm in diameter. There is no ultrasound evidence of acute cholecystitis. The hepatic parenchyma is homogeneous and unremarkable. The visualized portion of the pancreatic head is unremarkable. The body and tail are obscured by bowel. There is no right renal calculus, hydronephrosis, mass or cyst. The right kidney is normal size measuring 10.1 cm craniocaudad length. Impression: Essentially negative abdominal right upper quadrant ultrasound. There is no evidence of cholelithiasis or acute cholecystitis. Signed by Rock Broderick MD 01/07/2017 09:14 A
== END ==
LOC: M RAD 07:14
PROVIDERS: ATTEND Specialist
DX: K81.0 Acute cholecystitis (principal)

== ENCOUNTER 2017-03-26 07:57 | Day surgery (SDC) | payer MEDICAID ==
[~2017-03-26] VITALS: Ht 152.4 cm; Wt 54.9 kg
[2017-03-26] MEDS ORDERED: LR 1,000 ML IV ONE (08:15)
[2017-03-26] MEDS ORDERED: LIDOCAINE 2% INJ 100 MG/5 ML SDV (FOR ANES.) As Ordered ONE (09:23)
[2017-03-26] MEDS ORDERED: KETOROLAC 60 MG/2 ML VIAL (J1885) As Ordered ONE (09:23)
[2017-03-26] MEDS ORDERED: dexameTHASONE 4 MG/ML 1ML VIAL (J1100) As Ordered ONE (09:23)
[2017-03-26] MEDS ORDERED: fentaNYL 250 MCG/5 ML INJECTION (J3010) As Ordered ONE (09:23)
[2017-03-26] MEDS ORDERED: MIDAZOLAM INJ 2 MG/2 ML VIAL (J2250) As Ordered ONE (09:23)
[2017-03-26] MEDS ORDERED: ONDANSETRON 4MG/2ML VIAL (J2405) As Ordered ONE (09:23)
[2017-03-26] MEDS ORDERED: PROPOFOL 200 MG/20 ML VIAL As Ordered ONE (09:23)
[2017-03-26] MEDS ORDERED: BUPIVACAINE HCL 0.25% 30 ML VIAL As Ordered ONE (11:17)
[2017-03-26] MEDS ORDERED: LIDOCAINE 1% SDV INJ 30 ML VIAL As Ordered ONE (11:17)
[2017-03-26] MEDS ORDERED: ePHEDrine SULFATE 25 MG/5 ML(5MG/ML) SYRINGE As Ordered ONE ×2 (11:57→13:07)
[2017-03-26] MEDS ORDERED: HYDROmorphone HCL 2 MG/ML 1ML VIAL (J1170) As Ordered ONE (12:15)
[2017-03-26] MEDS ORDERED: METOCLOPRAMIDE INJ 10MG/2ML VIAL (J2765) As Ordered ONE (12:21)
[2017-03-26] MEDS ORDERED: NORCO, ANEXSIA 5/325MG TABLET (HYDROcodone/ACETAMINOPHEN) PO PRN (13:15)
[2017-03-26] MEDS ORDERED: fentaNYL 100 MCG/2 ML INJECTION (J3010) IV PRN (13:15)
[2017-03-26] MEDS ORDERED: MORPHINE 2 MG/ML 1ML SYRINGE IV PRN (13:15)
[2017-03-26] MEDS ORDERED: PERCOCET 5MG/325MG TAB PO PRN (13:15)
[2017-03-26] MEDS ORDERED: ACETAMINOPHEN TAB 650MG DOSE (2X325MG) PO PRN (13:15)
[2017-03-26] MEDS ORDERED: METOCLOPRAMIDE INJ 10MG/2ML VIAL (J2765) IV PRN (13:15)
[2017-03-26] MEDS ORDERED: LR 1,000 ML IV SCH (13:15)
[2017-03-26] MEDS ORDERED: ONDANSETRON 4MG/2ML VIAL (J2405) IV PRN (13:15)
[2017-03-26] MEDS ORDERED: IBUPROFEN 600 MG TAB PO PRN (13:15)
[2017-03-26 15:43] VITALS: BP 121/80
--- NOTE | 2017-03-28 11:29 | RO ---
DATE OF PROCEDURE: 03/26/2017 PREOPERATIVE DIAGNOSIS: Right inguinal hernia. POSTOPERATIVE DIAGNOSIS: Small indirect right inguinal hernia. PROCEDURE PERFORMED: Right inguinal herniorrhaphy. SURGEON: Julien Stephens MD ANESTHESIA: General. INDICATIONS FOR PROCEDURE: The patient is a 41-year-old woman who has noticed a small bulge in the inguinal area. Examination confirmed a small inguinal hernia and she is now for repair. OPERATIVE PROCEDURE: The patient was placed under general anesthesia using an LMA. The patient's lower abdomen, groins and genitalia were prepped and draped in a sterile fashion. The patient was noted to have a small tattoo of a floral pattern with a butterfly in the low right lower quadrant, slightly above the level of the inguinal canal. An approximately 6-8 cm oblique incision was made just inferior to the level of the tattoo. The incision was deepened through the subcutaneous tissues using cautery. The external oblique was opened in the direction of its fibers. A small protrusion of fibrofatty tissue was identified as the internal ring was identified. The round ligament was identified protruding with this and extending inferiorly. The round ligament was clamped and divided and ligated with #3-0 chromic. The small hernia protrusion was dissected up into the opening of the internal ring. There did not appear to be a true peritoneal sac, but primarily some fibrofatty tissue protruding. This was ligated at its neck and excised and sent as a specimen. The neck seemed to retract beneath the abdominal wall muscles. I then closed the area of the internal inguinal ring and the floor to close the opening using interrupted simple sutures of #2-0 Ethibond. Approximately four sutures were placed. I elected not to place mesh. Some 0.25% Marcaine was infiltrated into the floor of the inguinal canal and additional local was infiltrated into the subcutaneous tissues. The external oblique was closed with a running suture of #0 Vicryl. The subcutaneous tissues were closed with #3-0 Vicryl and the skin edges were approximated with a running subcuticular #4-0 Vicryl and Steri-Strips. A light dressing was applied. The patient tolerated the procedure well without apparent complication. She was awakened in the operating room, extubated and moved to the recovery room in stable condition. TALON
== END 2017-03-26 15:35 | disposition home or self-care (01) ==
LOC: M SDC 07:57
PROVIDERS: ATTEND Surgery
DX: K40.90 Unilateral inguinal hernia, without obstruction or gangrene, not specified as recurrent (principal); D64.9 Anemia, unspecified; Z79.899 Other long term (current) drug therapy; Z88.2 Allergy status to sulfonamides
CPT/HCPCS: 49505; 88302; J1100; J1170; J1885; J2250; J2405; J2765; J3010

== ENCOUNTER → 2018-02-23 | Outpatient (CLI) | payer MEDICAID | LOC: M RAD 15:06 | DX: N83.01 Follicular cyst of right ovary (principal); Z90.710 Acquired absence of both cervix and uterus | CPT/HCPCS: 76856 ==

== ENCOUNTER → 2018-03-18 | Outpatient (CLI) | payer OTHER | LOC: M RAD 08:09 | DX: R10.2 Pelvic and perineal pain (principal); Z90.710 Acquired absence of both cervix and uterus | CPT/HCPCS: 74176 ==

== ENCOUNTER 2018-04-20 06:11 | Day surgery (SDC) | payer OTHER ==
[2018-04-20 06:33] LABS: HEMATOCRIT 42.3 % (36.0-47.0); HEMOGLOBIN 14.1 g/dl (12.0-15.5); MEAN CORPUSCULAR HEMOGLOBIN 30.1 pg (27.0-33.0); MEAN CORPUSCULAR HGB CONC 33.3 g/dl (32.0-36.5); MEAN CORPUSCULAR VOLUME 90.2 fl (80.0-96.0); PLATELET COUNT, AUTOMATED 213 10^3/uL (150-450); RED BLOOD COUNT 4.69 10^6/uL (4.00-5.40); RED CELL DISTRIBUTION WIDTH 12.3 % (11.5-14.5); WHITE BLOOD COUNT 4.8 10^3/uL (4.0-10.0)
[2018-04-20] MEDS: LR 1,000 ML IV (07:00)
[2018-04-20] MEDS ORDERED: SCOPOLAMINE 1MG TRANSDERMAL PATCH As Ordered (07:09)
[2018-04-20] MEDS ORDERED: SCOPOLAMINE 1MG TRANSDERMAL PATCH TOP (07:30)
[2018-04-20] MEDS ORDERED: METOCLOPRAMIDE INJ 10MG/2ML VIAL (J2765) As Ordered (07:40)
[2018-04-20] MEDS ORDERED: dexameTHASONE 4 MG/ML 1ML VIAL (J1100) As Ordered (07:42)
[2018-04-20] MEDS ORDERED: fentaNYL 100 MCG/2 ML INJECTION (J3010) As Ordered (07:42)
[2018-04-20] MEDS ORDERED: PROPOFOL 200 MG/20 ML VIAL As Ordered (07:42)
[2018-04-20] MEDS ORDERED: MIDAZOLAM INJ 2 MG/2 ML VIAL (J2250) As Ordered (07:42)
[2018-04-20] MEDS ORDERED: LIDOCAINE 2% INJ 100 MG/5 ML SDV (FOR ANES.) As Ordered (07:42)
[2018-04-20] MEDS ORDERED: KETOROLAC 60 MG/2 ML VIAL (J1885) As Ordered (07:42)
[2018-04-20] MEDS ORDERED: ONDANSETRON 4MG/2ML VIAL (J2405) As Ordered (07:42)
[2018-04-20] MEDS: ceFAZolin 2 GM/D5W 50 ML IV BAG (J0690 PER 500MG) As Ordered (07:55)
[2018-04-20] MEDS: BUPIVACAINE HCL 0.25% 30 ML VIAL As Ordered (08:00)
[2018-04-20] MEDS ORDERED: PHENYLephrine HCL 500 MCG/5 ML (100MCG/ML) SYRINGE (J2370) As Ordered (08:08)
[2018-04-20] MEDS ORDERED: LR 1,000 ML IV ×2 (08:45→09:00)
[2018-04-20] MEDS ORDERED: PERCOCET 5MG/325MG TAB PO (08:45)
[2018-04-20] MEDS ORDERED: fentaNYL 100 MCG/2 ML INJECTION (J3010) IV (09:00)
[2018-04-20] MEDS ORDERED: ONDANSETRON 4MG/2ML VIAL (J2405) IV (09:00)
== END 2018-04-20 12:16 | disposition home or self-care (01) ==
LOC: M SDC 06:11
DX: N39.3 Stress incontinence (female) (male) (principal); Z88.2 Allergy status to sulfonamides; Z90.710 Acquired absence of both cervix and uterus; Z86.2 Personal history of diseases of the blood and blood-forming organs and certain disorders involving the immune mechanism
CPT/HCPCS: 57288

== ENCOUNTER → 2018-04-22 | Outpatient (REF) | payer OTHER | LOC: M LAB REF 16:57 | DX: N39.3 Stress incontinence (female) (male) (principal) ==

== ENCOUNTER 2018-04-28 13:54 | Day surgery (SDC) | payer OTHER ==
[~2018-04-28 13:54] MED LIST changes: -/CIPR75TA OR; -/METO5TA PO; -ACET65TA OR; -AUGM875T27 PO; -FERR1TAB8 PO; -FLAG500T PO; -IBUP-1022 PO; -IBUP600T OR; -NO MEDS AT HOME; -OMEP40CA2 PO; -OSEL75CA2 PO; -OXYC1TAB23 PO; -PENI500T PO; -PERC5TAB12 PO; -PROV10TA PO; -TAKES NO MEDS; -VALI5TAB OR; -VENTAER IN; -ZANT150T OR; +ceFAZolin SOD 1 GM in D5W MINI-BAG PLUS 50 ML IV
[2018-04-28 14:36] LABS: HEMATOCRIT 41.7 % (36.0-47.0); HEMOGLOBIN 13.7 g/dl (12.0-15.5); MEAN CORPUSCULAR HEMOGLOBIN 29.8 pg (27.0-33.0); MEAN CORPUSCULAR HGB CONC 32.9 g/dl (32.0-36.5); MEAN CORPUSCULAR VOLUME 90.8 fl (80.0-96.0); PLATELET COUNT, AUTOMATED 211 10^3/uL (150-450); RED BLOOD COUNT 4.59 10^6/uL (4.00-5.40); RED CELL DISTRIBUTION WIDTH 12.1 % (11.5-14.5); WHITE BLOOD COUNT 6.1 10^3/uL (4.0-10.0)
[2018-04-28] MEDS ORDERED: SCOPOLAMINE 1MG TRANSDERMAL PATCH As Ordered (16:00)
[2018-04-28] MEDS: SCOPOLAMINE 1MG TRANSDERMAL PATCH TOP (16:15)
[2018-04-28] MEDS: LR 1,000 ML IV (16:15)
[2018-04-28] MEDS ORDERED: ONDANSETRON 4MG/2ML VIAL (J2405) As Ordered ×2 (16:25→16:28)
[2018-04-28] MEDS ORDERED: PROPOFOL 200 MG/20 ML VIAL As Ordered (16:25)
[2018-04-28] MEDS ORDERED: KETOROLAC 60 MG/2 ML VIAL (J1885) As Ordered (16:25)
[2018-04-28] MEDS ORDERED: LIDOCAINE 2% INJ 100 MG/5 ML SDV (FOR ANES.) As Ordered (16:25)
[2018-04-28] MEDS ORDERED: dexameTHASONE 4 MG/ML 1ML VIAL (J1100) As Ordered (16:25)
[2018-04-28] MEDS ORDERED: MIDAZOLAM INJ 2 MG/2 ML VIAL (J2250) As Ordered (16:26)
[2018-04-28] MEDS ORDERED: fentaNYL 250 MCG/5 ML INJECTION (J3010) As Ordered (16:26)
[2018-04-28] MEDS ORDERED: fentaNYL 100 MCG/2 ML INJECTION (J3010) As Ordered (16:26)
[2018-04-28] MEDS: BUPIVACAINE HCL 0.25% 30 ML VIAL As Ordered (17:11)
[2018-04-28] MEDS ORDERED: fentaNYL 100 MCG/2 ML INJECTION (J3010) IV (18:00)
[2018-04-28] MEDS ORDERED: PERCOCET 5MG/325MG TAB PO (18:00)
[2018-04-28] MEDS ORDERED: ONDANSETRON 4MG/2ML VIAL (J2405) IV (18:00)
[2018-04-28] MEDS ORDERED: LR 1,000 ML IV ×2 (18:00)
[2018-04-28] MEDS ORDERED: HYDROMORPHONE HCL 0.5 MG/ 0.5 ML SYRINGE (J1170 PER 1) IV (18:00)
== END 2018-04-28 19:35 | disposition home or self-care (01) ==
LOC: M SDC 19:35
DX: R39.198 Other difficulties with micturition (principal); Z88.2 Allergy status to sulfonamides; Z98.51 Tubal ligation status; Z90.710 Acquired absence of both cervix and uterus
CPT/HCPCS: 57288

== ENCOUNTER 2018-10-16 14:51 | Emergency (ER) | payer OTHER ==
[~2018-10-16] VITALS: Ht 152.4 cm; Wt 56.9 kg
[~2018-10-16 14:51] MED LIST changes: +/CIPR75TA OR; +ACET65TA OR; +AUGM875T27 PO; +FERR1TAB8 PO; +FLAG500T PO; +IBUP-1022 PO; +IBUP600T OR; +METO1TAB88 PO; +NO MEDS AT HOME; +OMEP40CA2 PO; +OSEL75CA2 PO; +OXYC1TAB23 PO; +PENI500T PO; +PERC5TAB12 PO; +PROV10TA PO; +TAKES NO MEDS; +VALI5TAB OR; +VENTAER IN; +ZANT150T OR; -ceFAZolin SOD 1 GM in D5W MINI-BAG PLUS 50 ML IV
[2018-10-16] MEDS ORDERED: KETOROLAC 60 MG/2 ML VIAL (J1885) IM ONE (16:15)
[2018-10-16] MEDS ORDERED: CYCLOBENZAPRINE 10 MG TAB PO ONE (16:15)
[2018-10-16] MEDS ORDERED: CYCL10TA PO (17:23)
[2018-10-16] MEDS ORDERED: IBUP-1022 PO (17:23)
[2018-10-16 17:42] VITALS: BP 94/55
--- NOTE | 2018-10-17 07:44 | REP ---
PELVIS: AP view of the pelvis is performed. Oval calcification at the superolateral right acetabulum may represent an old fracture. There is no acute fracture or dislocation. There is no intrinsic osseous pathology. IMPRESSION: No acute fracture or dislocation. Electronically Signed by Rock Horton MD 10/17/2018 05:21 P
--- NOTE | 2018-10-17 07:46 | REP ---
LUMBOSACRAL SPINE: AP and lateral views of the lumbosacral spine are performed. There is no compression fracture or malalignment with normal lumbar lordosis. The disc spaces appear well preserved. The posterior elements are intact. IMPRESSION: No fracture or dislocation. Electronically Signed by Rock Horton MD 10/17/2018 05:21 P
== END 2018-10-16 17:49 | disposition home or self-care (01) ==
LOC: M ED 14:51
DX: S39.012A Strain of muscle, fascia and tendon of lower back, initial encounter (principal); W10.8XXA Fall (on) (from) other stairs and steps, initial encounter; Y92.89 Other specified places as the place of occurrence of the external cause; M54.32 Sciatica, left side; Z88.1 Allergy status to other antibiotic agents; Z88.2 Allergy status to sulfonamides; F17.210 Nicotine dependence, cigarettes, uncomplicated
CPT/HCPCS: 72100; 72170; 96372; 99283; J1885

== ENCOUNTER → 2019-06-19 | Outpatient (REF) | payer OTHER ==
[~2019-06-19] MED LIST changes: +CYCL10TA PO
[2019-06-19 14:47] LABS: INFLUENZA A AMPLIFICATION NEGATIVE (NEGATIVE); INFLUENZA B AMPLIFICATION NEGATIVE (NEGATIVE)
== END ==
LOC: M LAB REF 13:43
PROVIDERS: ATTEND Physician Assistant Medical
DX: J11.1 Influenza due to unidentified influenza virus with other respiratory manifestations (principal); R50.9 Fever, unspecified

== ENCOUNTER 2019-07-11 09:09 | Emergency (ER) | payer OTHER ==
[~2019-07-11] VITALS: Ht 152.4 cm; Wt 58.2 kg
[2019-07-11] MEDS ORDERED: NS 500 ML IV ONE (09:30)
[2019-07-11 10:22] LABS: BASO % 0.6 % (0.0-1.0); EOS # 0.2 10^3/uL (0.0-0.5); EOS % 3.4 % (0.0-3.0); HEMATOCRIT 43.3 % (36.0-47.0); LYMPH # 0.8 10^3/uL (1.5-5.0); LYMPH % 17.9 % (24.0-44.0); MEAN CORPUSCULAR HEMOGLOBIN 29.5 pg (27.0-33.0); MEAN CORPUSCULAR HGB CONC 32.3 g/dl (32.0-36.5); MEAN CORPUSCULAR VOLUME 91.4 fl (80.0-96.0); MONO # 0.3 10^3/uL (0.0-0.8); MONO % 6.6 % (0.0-5.0); NEUTROPHILS # 3.4 10^3/uL (1.5-8.5); NEUTROPHILS % 71.3 % (36.0-66.0); PLATELET COUNT, AUTOMATED 202 10^3/uL (150-450); RED BLOOD COUNT 4.74 10^6/uL (4.00-5.40); WHITE BLOOD COUNT 4.7 10^3/uL (4.0-10.0)
[2019-07-11] MEDS ORDERED: ISOVUE-370 76% 100ML VIAL (Q9967) As Ordered ONE (10:28)
[2019-07-11 10:33] LABS: INR 1.09; PROTHROMBIN TIME 13.8 SECONDS (11.8-14.0)
[2019-07-11 10:34] LABS: PARTIAL THROMBOPLASTIN TIME 27.9 SECONDS (25.0-38.4)
[2019-07-11 10:47] LABS: ALBUMIN 3.8 GM/DL (3.2-5.2); BILIRUBIN,DIRECT 0.1 MG/DL (0.0-0.2); BILIRUBIN,TOTAL 0.7 MG/DL (0.2-1.0)
--- NOTE | 2019-07-11 10:56 | REP ---
CT of the cervical spine: Axial images are acquired helical scanning and a reformatted sagittal and coronal projections. Vertebral body heights and alignment are normal. There is multilevel degenerative disc disease throughout the cervical spine. The facets are normally aligned. There is facet osteoarthritis. The prevertebral soft tissues are normal. The skull base, C1-C2 are unremarkable. There are no posterior element fractures. Impression: There is no fracture or listhesis. Multilevel degenerative disc disease. Facet osteoarthritis. Electronically Signed by Rock Broderick MD 07/11/2019 10:47 A
--- NOTE | 2019-07-11 11:04 | REP ---
CT of the chest with IV contrast: There is no pneumothorax, hemothorax or pulmonary contusion. There are no nodules or masses. The thoracic aorta is unremarkable. There is no periaortic or mediastinal hematoma. Cardiac size is normal. There is no clavicle or scapular fracture. No rib fractures are identified. No sternal or vertebral fractures are identified. Impression: Essentially negative CT study of the chest. Electronically Signed by Rock Broderick MD 07/11/2019 10:55 A
--- NOTE | 2019-07-11 11:09 | REP ---
Of the abdomen and pelvis with IV contrast: Comparison is 03/18/2018. The studies performed. Contiguous with the chest CT. The hepatic parenchyma is homogeneous. The gallbladder, pancreas and spleen are unremarkable. The adrenals are unremarkable. The kidneys are unremarkable. The abdominal aorta is unremarkable. There is no periaortic hematoma. There is no free fluid in the abdomen. There is no pneumoperitoneum. The bowel and mesentery are unremarkable. Pelvis: There is a hysterectomy. The bladder is unremarkable. The pelvic bowel loops are unremarkable. There is no free fluid. There are no lumbar, sacral, pelvic or hip fractures. Impression: There is no hemoperitoneum or pneumoperitoneum. No solid organ injury. No lumbar, sacral, pelvic or hip fracture. Electronically Signed by Rock Broderick MD 07/11/2019 11:01 A
--- NOTE | 2019-07-11 11:14 | REP ---
CT BRAIN WITHOUT IV CONTRAST: CT brain performed without IV contrast. Coronal reconstruction images are performed. Ventricles are normal in size and position. There is no midline shift or mass effect. Horton-white differentiation is well-maintained. There is no acute intracranial hemorrhage or extra-axial fluid collection. There is no skull fracture. IMPRESSION: No acute bleed or fracture. Electronically Signed by Rock Horton MD 07/12/2019 01:29 P
[2019-07-11] MEDS ORDERED: MORPHINE 2 MG/ML 1ML VIAL (J2270) IV ONE (11:30)
--- NOTE | 2019-07-11 12:33 | REP ---
Left shoulder three views : There is no fracture or dislocation. Mineralization and joint spaces are normal. There are no calcifications or foreign bodies. Impression: Negative left shoulder . Electronically Signed by Rock Broderick MD 07/11/2019 12:26 P
--- NOTE | 2019-07-11 12:33 | REP ---
Right knee four views : There is no fracture or dislocation. Mineralization and joint spaces are normal. There are no calcifications or foreign bodies. Impression: Negative right knee Left knee four views : There is no fracture or dislocation. Mineralization and joint spaces are normal. There are no calcifications or foreign bodies. Impression: Negative left knee . Electronically Signed by Rock Broderick MD 07/11/2019 12:25 P
--- NOTE | 2019-07-11 12:35 | REP ---
Left humerus two views : There is no fracture or dislocation. Mineralization and joint spaces are normal. There are no calcifications or foreign bodies. Impression: Negative left humerus . Electronically Signed by Rock Broderick MD 07/11/2019 12:26 P
[2019-07-11] MEDS ORDERED: NORC1TAB7 PO (13:04)
--- NOTE | 2019-07-11 13:33 | REP ---
CHEST: Single view. There is no evidence of acute infiltrate. No pleural effusion is seen. The heart is normal in size. The mediastinal silhouette is unremarkable. The visualized osseous structures are intact. IMPRESSION: No acute pulmonary disease. Electronically Signed by Rock Horton MD 07/12/2019 01:31 P
--- NOTE | 2019-07-11 13:33 | REP ---
BILATERAL FEMURS: AP and lateral views of bilateral femurs performed. There is no acute fracture, dislocation, or intrinsic bone disease. IMPRESSION: No fracture or dislocation. Electronically Signed by Rock Horton MD 07/12/2019 01:31 P
[2019-07-11 14:30] VITALS: BP 107/74
--- NOTE | 2019-07-11 18:27 | ECGEPIP ---
[facility] - ED Test Date: 2019-07-11 Pat Name: AGUSTINA LEVI Department: Room: - Gender: Female Department Supervisor: : 1975 Requested By: Sanam Reza Order Number: [id number] Reading MD: Angel Park Measurements Intervals [place] Rate: 74 P: 53 SD: 143 QRS: 27 QRSD: 86 T: 28 QT: 360 QTc: 400 Interpretive Statements SINUS RHYTHM POOR R WAVE PROGRESSION SIMILAR TO 08/05/16 Electronically Signed on 07-11-2019 18:27:40 EST by Angel Park
== END 2019-07-11 14:50 | disposition home or self-care (01) ==
LOC: EDBD 09:09 → M ED 09:09
DX: S06.330A Contusion and laceration of cerebrum, unspecified, without loss of consciousness, initial encounter (principal); S16.1XXA Strain of muscle, fascia and tendon at neck level, initial encounter; V48.5XXA Car driver injured in noncollision transport accident in traffic accident, initial encounter; Y92.410 Unspecified street and highway as the place of occurrence of the external cause; Z88.2 Allergy status to sulfonamides
CPT/HCPCS: 70450; 71045; 71260; 72125; 73030; 73060; 73552; 73564; 74177; 80047; 80076; 82150; 83690; 85025; 85610; 85730; 86850; 86900; 86901; 93005; 93041; 94760; 96361; 96374; 99285; J2270; Q9967